=== PATIENT | male | born 1970 | race Caucasian/White ===

== ENCOUNTER 2019-02-19 11:08 | Inpatient (IN) | payer OTHER ==
[2019-02-19] MEDS ORDERED: SODIUM CHLORIDE 0.9% 1,000 ML IV STA (11:20)
--- NOTE | 2019-02-19 11:24 | ED ---
General Adult HPI - General Stated complaint: trauma Time Seen by Provider: 02/19/19 11:20 - History of Present Illness Initial comments: Dictation was produced using [employer] dictation software. please excuse any grammatical, word or spelling errors. Chief Complaint: 48-year-old male presents after fall from approximately 20 feet. History of Present Illness: 48-year-old male. He was in his tree stand when he stepped out. He states he missed the branch fell approximately 20 feet landing on his right back. He states his pain to his right lateral chest. EMS was called patient was brought to the emergency department. Patient was ambulatory after the fall. Patient did have one beer this morning. Patient denies any ALLERGIES. No medical problems. Patient denies any numbness and paresthesias. No loss of consciousness. Denies any head or neck pain. Shortness of breath. The ROS documented in this emergency department record has been reviewed and confirmed by me. Those systems with pertinent positive or negative responses have been documented in the HPI. All other systems are other negative and/or noncontributory. PHYSICAL EXAM: General Impression: Alert and oriented x3, acute distress secondary to pain HEENT: Normocephalic atraumatic, extra-ocular movements intact, pupils equal and reactive to light bilaterally, mucous membranes moist. Cardiovascular: Heart regular rate and rhythm, S1&S2 audible, no murmurs, rubs or gallops Chest: Bilateral breath sounds, crepitus to the right lateral chest Abdomen: Bowel sounds present, abdomen soft, non-tender, non-distended, no organomegaly Musculoskeletal: Pulses present and equal in all extremities, no peripheral edema, no step-offs or crepitus or deformity. The cervical thoracic and lumbar spine, no extremity deformities Motor: no focal deficits noted Neurological: CN II-XII grossly intact, no focal motor or sensory deficits noted Skin: Intact with no visualized rashes Psych: Normal affect and mood ED course: 48-year-old male presents after fall from tree stand. He fell approximately 20 feet. Vital signs arrival are within acceptable limits. Patie nt is crepitus to his right lateral chest. Patient seen and evaluated in emergency resuscitation A. Patient was evaluated via ATLS trauma protocol. Chest exam was equivocal. Left abdomen, cardiac and pelvic when those were unremarkable. There appeared to be significant crepitus obscuring vision of the right abdominal use. Patient did have buckled sign with M-mode of the right lung fortune concerning for pneumothorax. Chest x-ray showed infiltrates in the right lung fortune for pulmonary contusion. Supine x-rays did not reveal large pneumothoraces. No concern for tension pneumothorax at this time. Laboratory evaluation obtained. Leukocytosis of 0.6, hemoglobin 12.8, coag panel unremarkable. Metabolic panel shows like acidosis of 5.0, glucose 125. Patient's creatinine kinase of 683. Serum alcohol of 60. Initial chest x-ray shows no pneumothorax without any mediastinal shift. Pelvis x-rays unremarkable. Computed tomography scan of the head and C-spine is negative. Chest abdomen pelvis CT shows 40% right-sided pneumothorax with small hemothorax noted. There is segmented right-sided rib fractures. No clinical suspicion of flow chest despite segmental rib fractures. No aortic injury. No injuries noted to the abd and pelvis. chest was placed under sterile conditions. 28- Z[place]ian chest tube was placed at the level of the mid axillary line at the level of the nipple. Patient tolerated procedure well. Given ketamine during the procedure. Postprocedure x-ray shows expansion prolonged with adequate placement of chest tube. Discussed patient case with Dr. Zayas request patient be admitted to the intensive care unit. ICU doctors consulted. Anesthesia was consulted. EKG interpretation: Ventricular rate 105, sinus tachycardia,. 132, care is 80, QTc 459. No ME prolongation, no QTC prolongation, no ST or T-wave changes noted. Overall, this EKG is unremarkable - Related Data Home Medications Medication Instructions Recorded Confirmed Butalb/APAP/Caff 50-325-40Mg 1 - 2 tab PO Q6H PRN 02/19/19 02/19/19 [Fioricet 50-325-40] Clonazepam Odt 0.5mg 0.5 mg PO Q8H PRN 02/19/19 02/19/19 Irbesartan/Hydrochlorothiazide 1 tab PO DAILY 02/19/19 02/19/19 [Irbesartan-Hctz 300-12.5 mg Tb] Nortriptyline HCl [Pamelor] 25 - 50 mg PO HS 02/19/19 02/19/19 amLODIPine [Norvasc] 5 mg PO DAILY 02/19/19 02/19/19 Allergies Allergy/AdvReac Type Severity Reaction Status Date / Time No Known Allergies Allergy Verified 02/19/19 12:21 Review of Systems ROS Statement: Those systems with pertinent positive or pertinent negative responses have been documented in the HPI. ROS Other: All systems not noted in ROS Statement are negative. Course Vital Signs 02/19/19 02/19/19 02/19/19 11:08 12:00 12:05 Temperature 97.8 F Pulse Rate 108 H 115 H 100 Respiratory 24 20 20 Rate Blood Pressure 155/90 152/86 172/95 O2 Sat by Pulse 91 L 94 L 94 L Oximetry 02/19/19 02/19/19 12:10 12:15 Temperature Pulse Rate 110 H 105 H Respiratory 24 24 Rate Blood Pressure 178/95 161/91 O2 Sat by Pulse 94 L 95 Oximetry Procedures - Chest Tube Insertion Consent Obtained: written consent Side of Procedure: right Indication: Hemothorax Placed on monitor/pulse oximetry: Yes Site Prep: Povidone-Iodine Local Anesthesia: Lidocaine 2%, Without Epi Insertion Site: 5th Intercostal Space, Midaxillary Scalpel: #15 Open into Pleural Space Using: Mirella Clamp Tube Size (Z[place]ian): 28 Returns: Air, Blood Sutured in Place: Yes Type of Suture: Silk Dressing Applied: 4x4, Tape Attached to Suction: Yes Type of Suction: Pleuravac Repeat X-ray Results: Lung Inflated Patient Tolerated Procedure: well Medical Decision Making - Lab Data Result diagrams: 02/19/19 11:11 02/19/19 11:11 Lab Results 02/19/19 02/19/19 02/19/19 Range/Units 11:11 11:11 11:11 WBC 12.6 H (3.8-10.6) k/uL RBC 3.84 L (4.30-5.90) m/uL Hgb 12.8 L (13.0-17.5) gm/dL Hct 37.5 L (39.0-53.0) % MCV 97.7 (80.0-100.0) fL MCH 33.3 (25.0-35.0) pg MCHC 34.1 (31.0-37.0) g/dL RDW 13.1 (11.5-15.5) % Plt Count 263 (150-450) k/uL Neutrophils % 88 % Lymphocytes % 7 % Monocytes % 4 % Eosinophils % 0 % Basophils % 0 % Neutrophils # 11.0 H (1.3-7.7) k/uL Lymphocytes # 0.8 L (1.0-4.8) k/uL Monocytes # 0.5 (0-1.0) k/uL Eosinophils # 0.1 (0-0.7) k/uL Basophils # 0.0 (0-0.2) k/uL PT (9.0-12.0) sec INR (<1.2) APTT (22.0-30.0) sec Sodium 137 (137-145) mmol/L Potassium 4.2 (3.5-5.1) mmol/L Chloride 101 (98-107) mmol/L Carbon Dioxide 22 (22-30) mmol/L Anion Gap 14 mmol/L BUN 14 (9-20) mg/dL Creatinine 0.82 (0.66-1.25) mg/dL Est GFR (CKD-EPI)AfAm >90 (>60 ml/min/1.73 sqM) Est GFR (CKD-EPI)NonAf >90 (>60 ml/min/1.73 sqM) Glucose 125 H (74-99) mg/dL Plasma Lactic Acid [place] (0.7-2.0) mmol/L Calcium 9.2 (8.4-10.2) mg/dL Total Bilirubin 0.4 (0.2-1.3) mg/dL AST 96 H (17-59) U/L ALT 77 H (21-72) U/L Alkaline Phosphatase 83 (38-126) U/L Total Creatine Kinase 683 H (55-170) U/L CK-MB (CK-2) 7.4 H (0.0-2.4) ng/mL CK-MB (CK-2) Rel Index 1.1 Troponin I <0.012 (0.000-0.034) ng/mL Total Protein 7.5 (6.3-8.2) g/dL Albumin 4.7 (3.5-5.0) g/dL Amylase 48 (30-110) U/L Lipase 119 (23-300) U/L Serum Alcohol 60 mg/dL Blood Type Blood Type Confirm Blood Type Recheck Bld Type Recheck Status Antibody Screen Spec Expiration Date 02/19/19 02/19/19 02/19/19 Range/Units 11:11 11:11 11:11 WBC (3.8-10.6) k/uL RBC (4.30-5.90) m/uL Hgb (13.0-17.5) gm/dL Hct (39.0-53.0) % MCV (80.0-100.0) fL MCH (25.0-35.0) pg MCHC (31.0-37.0) g/dL RDW (11.5-15.5) % Plt Count (150-450) k/uL Neutrophils % % Lymphocytes % % Monocytes % % Eosinophils % % Basophils % % Neutrophils # (1.3-7.7) k/uL Lymphocytes # (1.0-4.8) k/uL Monocytes # (0-1.0) k/uL Eosinophils # (0-0.7) k/uL Basophils # (0-0.2) k/uL PT 10.1 (9.0-12.0) sec INR 0.9 (<1.2) APTT 21.5 L (22.0-30.0) sec Sodium (137-145) mmol/L Potassium (3.5-5.1) mmol/L Chloride (98-107) mmol/L Carbon Dioxide (22-30) mmol/L Anion Gap mmol/L BUN (9-20) mg/dL Creatinine (0.66-1.25) mg/dL Est GFR (CKD-EPI)AfAm (>60 ml/min/1.73 sqM) Est GFR (CKD-EPI)NonAf (>60 ml/min/1.73 sqM) Glucose (74-99) mg/dL Plasma Lactic Acid [place] 5.0 H* (0.7-2.0) mmol/L Calcium (8.4-10.2) mg/dL Total Bilirubin (0.2-1.3) mg/dL AST (17-59) U/L ALT (21-72) U/L Alkaline Phosphatase (38-126) U/L Total Creatine Kinase (55-170) U/L CK-MB (CK-2) (0.0-2.4) ng/mL CK-MB (CK-2) Rel Index Troponin I (0.000-0.034) ng/mL Total Protein (6.3-8.2) g/dL Albumin (3.5-5.0) g/dL Amylase (30-110) U/L Lipase (23-300) U/L Serum Alcohol mg/dL Blood Type O Negative Blood Type Confirm Blood Type Recheck No Previous Record Bld Type Recheck Status CABO Indicated Antibody Screen NEGATIVE Spec Expiration Date 02/22/2019 - 231002/19/19 Range/Units 11:31 WBC (3.8-10.6) k/uL RBC (4.30-5.90) m/uL Hgb (13.0-17.5) gm/dL Hct (39.0-53.0) % MCV (80.0-100.0) fL MCH (25.0-35.0) pg MCHC (31.0-37.0) g/dL RDW (11.5-15.5) % Plt Count (150-450) k/uL Neutrophils % % Lymphocytes % % Monocytes % % Eosinophils % % Basophils % % Neutrophils # (1.3-7.7) k/uL Lymphocytes # (1.0-4.8) k/uL Monocytes # (0-1.0) k/uL Eosinophils # (0-0.7) k/uL Basophils # (0-0.2) k/uL PT (9.0-12.0) sec INR (<1.2) APTT (22.0-30.0) sec Sodium (137-145) mmol/L Potassium (3.5-5.1) mmol/L Chloride (98-107) mmol/L Carbon Dioxide (22-30) mmol/L Anion Gap mmol/L BUN (9-20) mg/dL Creatinine (0.66-1.25) mg/dL Est GFR (CKD-EPI)AfAm (>60 ml/min/1.73 sqM) Est GFR (CKD-EPI)NonAf (>60 ml/min/1.73 sqM) Glucose (74-99) mg/dL Plasma Lactic Acid [place] (0.7-2.0) mmol/L Calcium (8.4-10.2) mg/dL Total Bilirubin (0.2-1.3) mg/dL AST (17-59) U/L ALT (21-72) U/L Alkaline Phosphatase (38-126) U/L Total Creatine Kinase (55-170) U/L CK-MB (CK-2) (0.0-2.4) ng/mL CK-MB (CK-2) Rel Index Troponin I (0.000-0.034) ng/mL Total Protein (6.3-8.2) g/dL Albumin (3.5-5.0) g/dL Amylase (30-110) U/L Lipase (23-300) U/L Serum Alcohol mg/dL Blood Type Blood Type Confirm O Negative Blood Type Recheck Bld Type Recheck Status Antibody Screen Spec Expiration Date Critical Care Time Critical Care Time: Yes (40) Disposition Clinical Impression: Fall, Rib fracture, Hemopneumothorax Disposition: ADMITTED IP TO THIS [facility] Condition: Critical Referrals: None,Stated [REFERRING] - 1-2 days Decision Time: 13:18
[2019-02-19 11:29] LABS: Basophils % (A) 0 %; Eosinophils # (A) 0.1 k/uL (0-0.7); Eosinophils % (A) 0 %; HCT 37.5 % (39.0-53.0); HGB 12.8 gm/dL (13.0-17.5); Lymphocytes # (A) 0.8 k/uL (1.0-4.8); Lymphocytes % (A) 7 %; MCH 33.3 pg (25.0-35.0); MCHC 34.1 g/dL (31.0-37.0); MCV 97.7 fL (80.0-100.0); Mean Platelet Volume 6.2; Monocytes # (A) 0.5 k/uL (0-1.0); Monocytes % (A) 4 %; Neutrophils % (A) 88 %; Platelet Count 263 k/uL (150-450); RBC 3.84 m/uL (4.30-5.90); RDW 13.1 % (11.5-15.5); WBC 12.6 k/uL (3.8-10.6)
[2019-02-19 11:39] LABS: ALT 77 U/L (21-72); AST 96 U/L (17-59); African American GFR (CKD) >90 (>60 ml/min/1.73 sqM); Albumin 4.7 g/dL (3.5-5.0); Alcohol 60 mg/dL; Alkaline Phosphatase 83 U/L (38-126); Amylase 48 U/L (30-110); Anion Gap 14 mmol/L; Blood Urea Nitrogen 14 mg/dL (9-20); Calcium 9.2 mg/dL (8.4-10.2); Carbon Dioxide 22 mmol/L (22-30); Chloride 101 mmol/L (98-107); Glucose 125 mg/dL (74-99); Potassium 4.2 mmol/L (3.5-5.1); Sodium 137 mmol/L (137-145); Total Bilirubin 0.4 mg/dL (0.2-1.3); Total Protein 7.5 g/dL (6.3-8.2)
[2019-02-19 11:49] LABS: INR 0.9 (<1.2); Prothrombin Time 10.1 sec (9.0-12.0)
[2019-02-19] MEDS ORDERED: LIDOCAINE 1%-EPI 1:100,000 20 ML VIAL SQ STA (11:50)
[2019-02-19] MEDS ORDERED: KETAMINE 10 MG/ML 20 ML VIAL IV ONE (11:50)
--- NOTE | 2019-02-19 11:51 | CT ---
EXAMINATION TYPE: CT brain lesly wen DATE OF EXAM: 02/19/2019 COMPARISON: HISTORY: Fell 20' from tree blind CT DLP: 1693.[address] Brain: Unenhanced CT of the brain was performed. The ventricles, basal cisterns and sulci overlying the cerebral convexities demonstrate a normal appe arance. There is no evidence for intracranial hemorrhage or sulcal effacement. No mass effects are seen. If symptoms persist consider MRI. Osseous calvarium is intact. IMPRESSION: No acute intracranial process CT Cervical Spine: Unenhanced CT of the cervical spine was performed with bone and soft tissue window settings submitted . Coronal and sagittal reconstruction is obtained. There is normal alignment and prevertebral soft tissues. I do not see evidence for fracture or sublu xation. No significant degenerative changes are present. The lung apices are clear. Extensive subcu taneous emphysema noted. IMPRESSION: No evidence for acute fracture or subluxation of the cervical spine.
[2019-02-19 11:52] LABS: Partial Thromboplastin Time 21.5 sec (22.0-30.0)
--- NOTE | 2019-02-19 11:57 | XR ---
EXAMINATION TYPE: XR chest 1V portable DATE OF EXAM: 02/19/2019 COMPARISON: NONE HISTORY: 20 foot fall. Chest pain. TECHNIQUE: Single frontal view of the chest is obtained. FINDINGS: Right-sided pneumothorax is visualized with pleural separation of 1.2 cm. Extensive subcut aneous emphysema noted. No left-sided pneumothorax. No significant mediastinal shift at this time. Ca rdiomediastinal silhouette is within normal limits. IMPRESSION: Right-sided pneumothorax without current evidence of mediastinal shift. Findings were co mmunicated with Dr. Hernandez at 11:52am by Dr. Castellanos.
--- NOTE | 2019-02-19 11:58 | XR ---
EXAMINATION TYPE: XR pelvis AP view DATE OF EXAM: 02/19/2019 CLINICAL HISTORY: Pelvic pain after fall approximately 20 feet. TECHNIQUE: A single AP view of the pelvis is obtained. COMPARISON: None. FINDINGS: There is no acute fracture/dislocation evident in the pelvis. The hip and sacroiliac join ts appear symmetric and unremarkable. The overlying soft tissue appears unremarkable. Mild degenerat malcolm changes of the femoral acetabular joints are seen. IMPRESSION: There is no acute fracture or dislocation in the pelvis.
--- NOTE | 2019-02-19 12:03 | CT ---
EXAMINATION TYPE: CT ChestAbdPelvis w con DATE OF EXAM: 02/19/2019 COMPARISON: HISTORY: Fell 20' from tree blind CT DLP: 915.7 mGycm CONTRAST: Contrast enhanced Trauma CT of the Chest, Abdomen and Pelvis is performed with IV Contrast, patient i njected with 100 mL of Isovue 300. Chest: LUNGS: Estimated 40% right-sided pneumothorax identified. Stents of subcutaneous emphysema extending into the neck, along the right chest wall along the right abdominal subcutaneous tissues and into the right groin. There is no evidence for mediastinal shift at this time. The spinal air also noted. Rig ht-sided pleural effusion likely hemothorax on measuring 2.4 cm AP dimension. MEDIASTINUM: Thoracic aorta is of normal caliber without CT evidence to suggest traumatic induced ao rtic injury. No mediastinal fluid or blood. No pericardial fluid or cardia abnormality. HILAR STRUCTURES: No evidence for mass. No hilar adenopathy is appreciated. OTHER: No significant abnormality. OSSEOUS: Mildly comminuted mildly displaced Right-sided rib fractures are noted of the right ribs 4 t hrough 8. There appears to be segmented components of right ribs 5 through 8 (with medial and lateral fracture components) and flail chest is not excluded. CT ABDOMEN AND PELVIS FINDINGS: LIVER/GB: No focal laceration, contusion or subcapsular hemorrhage. No calcified gallstones. No s pace occupying hepatic lesion. Biliary tree is of normal caliber. PANCREAS: No evidence for transection. No inflammation. No distinct mass. SPLEEN: No focal laceration, contusion or subcapsular hemorrhage. ADRENALS: No hemorrhage. No nodule. No thickening. KIDNEYS/BLADDER: No focal laceration, contusion or subcapsular hemorrhage. No hydronephrosis. No n ephrolithiasis. No disctinct renal mass. BOWEL: Bowel is intact. No evidence for pneumoperitoneum. GENITAL ORGANS: No gross abnormality. LYMPH NODES: No greater than 1cm abdominal or pelvic lymph nodes areappreciated. AORTA: No traumatic aortic injury visualized. OSSEOUS STRUCTURES: No displaced fracture seen. OTHER: No evidence for hemoperitoneum. IMPRESSION: 1. Estimated 40% right-sided pneumothorax with small hemothorax noted. Segmented right-sided rib frac tures. Correlate for flail chest. Extensive subcutaneous emphysema. 2. No evidence for thoracic aortic injury. 3. Abdomen and pelvis fail to demonstrate evidence for traumatic injury at this time. Comment: The findings were discussed with the ER physician at time of exam completion.
[2019-02-19 12:06] LABS: Creatine Kinase MB 7.4 ng/mL (0.0-2.4); Troponin I <0.012 ng/mL (0.000-0.034)
[2019-02-19 12:17] LABS: Creatine Kinase 683 U/L (55-170)
[2019-02-19] MEDS ORDERED: MORPHINE SULFATE 4 MG/ML SYRINGE IVP STA (12:37)
[2019-02-19] MEDS ORDERED: fentaNYL (PF) 50 MCG/ML 2 ML AMP IVP PRN (12:46)
--- NOTE | 2019-02-19 12:51 | XR ---
EXAMINATION TYPE: XR chest 1V portable DATE OF EXAM: 02/19/2019 COMPARISON: 02/19/2019 HISTORY: Chest tube placement TECHNIQUE: Single frontal view of the chest is obtained. FINDINGS: Right-sided chest tube is noted to be in place. There appears to be diminution in size of right-sided pneumothorax however the extent of subcutaneous emphysema limits evaluation. Pneumomediastinum noted . Right-sided rib fractures discussed on the CT are poorly visualized. Left lung is clear. No mediast inal shift. IMPRESSION: 1. Right-sided chest tube is noted to be in place. There appears to be diminution in size of right-s ided pneumothorax however the extent of subcutaneous emphysema limits evaluation.
[2019-02-19] MEDS ORDERED: HYDROmorphone 1 MG/ML 1 ML SYRINGE IVP STA (13:07)
[2019-02-19] MEDS ORDERED: ACETAMINOPHEN TAB 325 MG TAB PO PRN (13:11)
[2019-02-19] MEDS ORDERED: ONDANSETRON 4 MG/2 ML VIAL IVP PRN (13:11)
[2019-02-19] MEDS ORDERED: NALOXONE 0.4 MG/ML 1 ML VIAL IV PRN (13:11)
[2019-02-19] MEDS: HYDROmorphone 1 MG/ML 1 ML SYRINGE IVP STA ×2 (13:14→13:48)
[2019-02-19] MEDS: SODIUM CHLORIDE 0.9% 1,000 ML IV SCH ×2 (13:22→21:49)
--- NOTE | 2019-02-19 14:00 | ED ---
Medical Decision Making - Lab Data Result diagrams: 02/19/19 11:11 02/19/19 11:11 Lab Results 02/19/19 02/19/19 02/19/19 Range/Units 11:11 11:11 11:11 WBC 12.6 H (3.8-10.6) k/uL RBC 3.84 L (4.30-5.90) m/uL Hgb 12.8 L (13.0-17.5) gm/dL Hct 37.5 L (39.0-53.0) % MCV 97.7 (80.0-100.0) fL MCH 33.3 (25.0-35.0) pg MCHC 34.1 (31.0-37.0) g/dL RDW 13.1 (11.5-15.5) % Plt Count 263 (150-450) k/uL Neutrophils % 88 % Lymphocytes % 7 % Monocytes % 4 % Eosinophils % 0 % Basophils % 0 % Neutrophils # 11.0 H (1.3-7.7) k/uL Lymphocytes # 0.8 L (1.0-4.8) k/uL Monocytes # 0.5 (0-1.0) k/uL Eosinophils # 0.1 (0-0.7) k/uL Basophils # 0.0 (0-0.2) k/uL PT (9.0-12.0) sec INR (<1.2) APTT (22.0-30.0) sec Sodium 137 (137-145) mmol/L Potassium 4.2 (3.5-5.1) mmol/L Chloride 101 (98-107) mmol/L Carbon Dioxide 22 (22-30) mmol/L Anion Gap 14 mmol/L BUN 14 (9-20) mg/dL Creatinine 0.82 (0.66-1.25) mg/dL Est GFR (CKD-EPI)AfAm >90 (>60 ml/min/1.73 sqM) Est GFR (CKD-EPI)NonAf >90 (>60 ml/min/1.73 sqM) Glucose 125 H (74-99) mg/dL Plasma Lactic Acid [place] (0.7-2.0) mmol/L Calcium 9.2 (8.4-10.2) mg/dL Total Bilirubin 0.4 (0.2-1.3) mg/dL AST 96 H (17-59) U/L ALT 77 H (21-72) U/L Alkaline Phosphatase 83 (38-126) U/L Total Creatine Kinase 683 H (55-170) U/L CK-MB (CK-2) 7.4 H (0.0-2.4) ng/mL CK-MB (CK-2) Rel Index 1.1 Troponin I <0.012 (0.000-0.034) ng/mL Total Protein 7.5 (6.3-8.2) g/dL Albumin 4.7 (3.5-5.0) g/dL Amylase 48 (30-110) U/L Lipase 119 (23-300) U/L Serum Alcohol 60 mg/dL Blood Type Blood Type Confirm Blood Type Recheck Bld Type Recheck Status Antibody Screen Spec Expiration Date 02/19/19 02/19/19 02/19/19 Range/Units 11:11 11:11 11:11 WBC (3.8-10.6) k/uL RBC (4.30-5.90) m/uL Hgb (13.0-17.5) gm/dL Hct (39.0-53.0) % MCV (80.0-100.0) fL MCH (25.0-35.0) pg MCHC (31.0-37.0) g/dL RDW (11.5-15.5) % Plt Count (150-450) k/uL Neutrophils % % Lymphocytes % % Monocytes % % Eosinophils % % Basophils % % Neutrophils # (1.3-7.7) k/uL Lymphocytes # (1.0-4.8) k/uL Monocytes # (0-1.0) k/uL Eosinophils # (0-0.7) k/uL Basophils # (0-0.2) k/uL PT 10.1 (9.0-12.0) sec INR 0.9 (<1.2) APTT 21.5 L (22.0-30.0) sec Sodium (137-145) mmol/L Potassium (3.5-5.1) mmol/L Chloride (98-107) mmol/L Carbon Dioxide (22-30) mmol/L Anion Gap mmol/L BUN (9-20) mg/dL Creatinine (0.66-1.25) mg/dL Est GFR (CKD-EPI)AfAm (>60 ml/min/1.73 sqM) Est GFR (CKD-EPI)NonAf (>60 ml/min/1.73 sqM) Glucose (74-99) mg/dL Plasma Lactic Acid [place] 5.0 H* (0.7-2.0) mmol/L Calcium (8.4-10.2) mg/dL Total Bilirubin (0.2-1.3) mg/dL AST (17-59) U/L ALT (21-72) U/L Alkaline Phosphatase (38-126) U/L Total Creatine Kinase (55-170) U/L CK-MB (CK-2) (0.0-2.4) ng/mL CK-MB (CK-2) Rel Index Troponin I (0.000-0.034) ng/mL Total Protein (6.3-8.2) g/dL Albumin (3.5-5.0) g/dL Amylase (30-110) U/L Lipase (23-300) U/L Serum Alcohol mg/dL Blood Type O Negative Blood Type Confirm Blood Type Recheck No Previous Record Bld Type Recheck Status CABO Indicated Antibody Screen NEGATIVE Spec Expiration Date 02/22/2019231002/19/19 Range/Units 11:31 WBC (3.8-10.6) k/uL RBC (4.30-5.90) m/uL Hgb (13.0-17.5) gm/dL Hct (39.0-53.0) % MCV (80.0-100.0) fL MCH (25.0-35.0) pg MCHC (31.0-37.0) g/dL RDW (11.5-15.5) % Plt Count (150-450) k/uL Neutrophils % % Lymphocytes % % Monocytes % % Eosinophils % % Basophils % % Neutrophils # (1.3-7.7) k/uL Lymphocytes # (1.0-4.8) k/uL Monocytes # (0-1.0) k/uL Eosinophils # (0-0.7) k/uL Basophils # (0-0.2) k/uL PT (9.0-12.0) sec INR (<1.2) APTT (22.0-30.0) sec Sodium (137-145) mmol/L Potassium (3.5-5.1) mmol/L Chloride (98-107) mmol/L Carbon Dioxide (22-30) mmol/L Anion Gap mmol/L BUN (9-20) mg/dL Creatinine (0.66-1.25) mg/dL Est GFR (CKD-EPI)AfAm (>60 ml/min/1.73 sqM) Est GFR (CKD-EPI)NonAf (>60 ml/min/1.73 sqM) Glucose (74-99) mg/dL Plasma Lactic Acid [place] (0.7-2.0) mmol/L Calcium (8.4-10.2) mg/dL Total Bilirubin (0.2-1.3) mg/dL AST (17-59) U/L ALT (21-72) U/L Alkaline Phosphatase (38-126) U/L Total Creatine Kinase (55-170) U/L CK-MB (CK-2) (0.0-2.4) ng/mL CK-MB (CK-2) Rel Index Troponin I (0.000-0.034) ng/mL Total Protein (6.3-8.2) g/dL Albumin (3.5-5.0) g/dL Amylase (30-110) U/L Lipase (23-300) U/L Serum Alcohol mg/dL Blood Type Blood Type Confirm O Negative Blood Type Recheck Bld Type Recheck Status Antibody Screen Spec Expiration Date Disposition Clinical Impression: Fall, Rib fracture, Hemopneumothorax Disposition: ADMITTED IP TO THIS HOSP Condition: Critical Procedures - [place] Protocol (Time Out) Procedure Performed:: CHEST TUBE INSERTION Performing Provider: Paulino Hernandez Nurse: Malika Murray Respiratory Therapist: Tate Hernandez Patient Identification (2 identifiers required): Chart, Verbal, Arm Band, Name, Birthdate, Medical Record Number Patient/Legal Plumbing Service Technician has Confirmed: Identity, Site, Procedure, Consent Site: RIGHT CHEST Site Marked: Not Applicable Site Verified With Patient/Guardian: Yes Final Confirmation: Procedure, Site, Patient Position, Radiographs, Confirmed w/Provider - FAST Exam Fluid in Morison's pouch: No (obscured by soft tissue air) Fluid in [place]en[place]nal [place]unction: No Fluid around bladder, Transverse view: No Fluid around bladder, Sagittal view: No Limited Echocardiogram view: subxiphoid Fluid in Pericardial Sac: No Gross Wall Motion Abnormality: Yes Study normal for this patient: Yes Images saved for further review: Yes
--- NOTE | 2019-02-19 14:01 | P.CNPUL ---
History of Present Illness Consult date: 02/19/19 Requesting physician: Paulino Hernandez Reason for consult: other Chief complaint: Trauma, hemothorax, broken ribs History of present illness: This is a 48-year-old white male patient who presented to the hospital after falling from a tree stand, patient fell approximately 20 feet. After his fall he was able to walk to the road, but then he realized he needed to go to the hospital related to severe pain in his right lateral chest. Patient has history of hypertension, migraine headaches, anxiety/depression, no ALLERGIES. Denied any loss of consciousness, he states a branch under him had broke causing him to fall 20 feet onto his right back. Denied any head or neck pain, no shortness of breath. In the ER CT of chest abdomen and pelvis showed the 40% right-sided hemopneumothorax with segmented right-sided rib fractures, with the possibility of flail chest. There was evidence of extensive subcutaneous emphysema. No evidence for thoracic aortic injury, etiology of abdomen and pelvis failed to demonstrate evidence of traumatic injury at this time. CT brain was negative, cervical spine CT showed no evidence of fracture or subluxation, showed extensive subcutaneous emphysema. Patient had the right-sided chest tube inserted by Dr. Hernandez in the emergency department, there has been 120 mL of 5 sanguinous output, there is an occasional air leak noted with deep inspiration. Lab work showed a white blood cell count of 12.6, hemoglobin of 12.8, platelet count of 263, in remission profile is within normal limits, electrolytes and renal profile are unremarkable, asthma lactic acid is 5.0, troponin is negative, serum alcohol is 60, and patient does admit to having one beer this morning. Is currently on 4 L of oxygen with a pulse ox of 95%, slightly tachycardic, and hypertensive, he is in moderate to severe amount of pain from the right-sided rib fractures, he has received IV Dilaudid, ketamine and fentanyl, anesthesia consultation is pending. Awaiting a bed in the ICU, and we're consulted for ICU management Review of Systems All systems: negative Constitutional: Denies chills, Denies fever Eyes: denies blurred vision, denies pain Ears, nose, mouth and throat: Denies headache, Denies sore throat Cardiovascular: Denies chest pain, Denies shortness of breath Respiratory: Reports dyspnea, Denies cough Gastrointestinal: Denies abdominal pain, Denies diarrhea, Denies nausea, Denies vomiting Musculoskeletal: Denies myalgias Integumentary: Denies pruritus, Denies rash Neurological: Denies numbness, Denies weakness Psychiatric: Denies anxiety, Denies depression Endocrine: Denies fatigue, Denies weight change Past Medical History Past Medical History: Hypertension History of Any Multi-Drug Resistant Organisms: None Reported Past Surgical History: No Surgical Hx Reported Past Psychological History: No Psychological Hx Reported Smoking Status: Current every day smoker Past Alcohol Use History: Daily Past Drug Use History: None Reported - Past Family History Father Family Medical History: No Reported History Medications and Allergies Home Medications Medication Instructions Recorded Confirmed Type Butalb/APAP/Caff 50-325-40Mg 1 - 2 tab PO Q6H PRN 02/19/19 02/19/19 History [Fioricet 50-325-40] Clonazepam Odt 0.5mg 0.5 mg PO Q8H PRN 02/19/19 02/19/19 History Irbesartan/Hydrochlorothiazide 1 tab PO DAILY 02/19/19 02/19/19 History [Irbesartan-Hctz 300-12.5 mg Tb] Nortriptyline HCl [Pamelor] 25 - 50 mg PO HS 02/19/19 02/19/19 History amLODIPine [Norvasc] 5 mg PO DAILY 02/19/19 02/19/19 History Allergies Allergy/AdvReac Type Severity Reaction Status Date / Time No Known Allergies Allergy Verified 02/19/19 12:21 Physical Exam Vitals: Vital Signs Temp Pulse Resp BP Pulse Ox 02/19/19 12:15 105 H 24 161/91 95 02/19/19 12:10 110 H 24 178/95 94 L 02/19/19 12:05 100 20 172/95 94 L 02/19/19 12:00 115 H 20 152/86 94 L 02/19/19 11:08 97.8 F 108 H 24 155/90 91 L Intake and Output 02/18/19 02/19/19 02/19/19 22:59 06:59 14:59 Other: Weight 86.183 kg GENERAL EXAM: Alert, pleasant, 48-year-old white male, in moderate to severe amount of distress from a right-sided chest discomfort from multiple broken ribs, comfortable in no apparent distress. HEAD: Normocephalic/atraumatic. EYES: Normal reaction of pupils, equal size. Conjunctiva pink, sclera white. NOSE: Clear with pink turbinates. THROAT: No erythema or exudates. NECK: No masses, no JVD, no thyroid enlargement, no adenopathy. CHEST: No chest wall deformity. Symmetrical expansion. Right anterior chest tube in place with the 100 mL of sanguinous output in the Pleur-evac, with occasional air leak with deep inspiration, and there is evidence of extensive subcu emphysema involving the anterior chest extending to his lower neck area, and down to his abdomen LUNGS: Equal air entry with no crackles, wheeze, rhonchi or dullness. CVS: Regular rate and rhythm, normal S1 and S2, no gallops, no murmurs, no rubs ABDOMEN: Soft, nontender. No hepatosplenomegaly, normal bowel sounds, no guarding or rigidity. EXTREMITIES: No clubbing, no edema, no cyanosis, 2+ pulses and upper and lower extremities. MUSCULOSKELETAL: Muscle strength and tone normal. SPINE: No scoliosis or deformity SKIN: No rashes CENTRAL NERVOUS SYSTEM: Alert and oriented -3. No focal deficits, tone is normal in all 4 extremities. PSYCHIATRIC: Alert and oriented -3. Appropriate affect. Intact judgment and insight. Results - Laboratory Findings CBC and BMP: 02/19/19 11:11 02/19/19 11:11 PT/INR, D-dimer PT 10.1 sec (9.0-12.0) 02/19/19 11:11 INR 0.9 (<1.2) 02/19/19 11:11 Abnormal lab findings: Abnormal Labs 02/19/19 02/19/19 02/19/19 11:11 11:11 11:11 WBC 12.6 H RBC 3.84 L Hgb 12.8 L Hct 37.5 L Neutrophils # 11.0 H Lymphocytes # 0.8 L APTT Glucose 125 H Plasma Lactic Acid Urbano AST 96 H ALT 77 H Total Creatine Kinase 683 H CK-MB (CK-2) 7.4 H 02/19/19 02/19/19 11:11 11:11 WBC RBC Hgb Hct Neutrophils # Lymphocytes # APTT 21.5 L Glucose Plasma Lactic Acid Urbano 5.0 H* AST ALT Total Creatine Kinase CK-MB (CK-2) - Diagnostic Findings Chest x-ray: report reviewed, image reviewed CT scan - chest: report reviewed, image reviewed Assessment and Plan Plan: Assessment: #1. Acute hypoxic respiratory failure related to hemopneumothorax, right chest tube inserted #2. Fall from a tree stand, multiple rib fracture on the right ribs 4 through 8, mildly comminuted and segmental components of right ribs 5 through 8, with the possibility of flail chest #3. Extensive subcutaneous emphysema extending into the neck along the right chest wall down to the abdomen and into the right groin #4. Severe pain related to the above #5. Blood loss anemia related to hemothorax #6. Elevated plasma lactic acid not related to sepsis #7. Daily alcohol use #8. Current smoker #9. Hypertension #10. Anxiety/depression Plan: Maintain pain control, anesthesia service consultation was requested, encourage deep breathing and coughing, CT chest abdomen pelvis and chest x-rays have been reviewed. We'll request cardiothoracic surgery consultation for hemothorax and chest tube management. Awaiting a bed in the ICU. Nicotine patch will be ordered. GI and DVT prophylaxis. We'll continue close hemodynamic monitoring. I performed a history & physical examination of the patient and discussed their management with my nurse practitioner, Ruth Fitch. I reviewed the nurse practitioner's note and agree with the documented findings and plan of care. Lung sounds are positive for diminished breath sounds at the bases. The findings and the impression was discussed with the patient. I attest to the documentation by the nurse practitioner. Time with Patient: Greater than 30
[2019-02-19 14:23] LABS: Glucose,Whole Blood 123 mg/dL (75-99)
[2019-02-19] MEDS ORDERED: KETOROLAC 30 MG/ML 1 ML VIAL IVP ONE (14:27)
[2019-02-19 15:09] VITALS: BMI 26.4
[2019-02-19] MEDS: HYDROmorphone 1 MG/ML 1 ML SYRINGE IVP PRN ×3 (15:11→20:35)
--- NOTE | 2019-02-19 15:23 | P.GSCN ---
History of Present Illness Consult date: 02/19/19 Reason for Consult: Right hemothorax, fractured ribs status post fall from a deer stand. Requesting physician: Nara Quintanilla History of present illness: This is a 48-year-old gentleman who is followed by Dr. Galileo Garcia on an outpatient basis. He has a past medical history significant for hypertension, is a current every day smoker, migraine headaches and anxiety/depression. The patient presented to the emergency department here at [facility] via EMS after falling approximately 20 feet from his chu stand. The patient reports that he he was getting down from his deer stand when a branch broke and he fell around 20 feet and landed on his back. He did not lose consciousness, bowel or bladder function. After his fall he was able to stand on his own and walk approximately 100 feet from his deer stand to the road where he was able to call 911 for assistance. He denies any headache, shortness of breath, but does report significant pain to his right chest. In the emergency department a computed tomography scan of his head/cervical spine was completed which showed no evidence of fracture or subluxation. A computed tomography scan of his abdomen/pelvis and chest was completed which demonstrated a 40% right sided hemopneumothorax with segmented right-sided rib fractures, with the possi bility of flail chest and extensive subcutaneous emphysema. A right-sided thoracostomy tube was inserted in the emergency department by . The chest tube is to low continuous wall suction -20 cm H2O. No air leak is present and is draining serosanguineous drainage with 200 mL in the Pleur-evac. Oxygen saturations are 96% on 4 L nasal cannula and his heart rate is showing sinus tachycardia heart rate 111 BPM. His initial laboratory results showed a WBC count of 12.6, hemoglobin 12.8, hematocrit 37.5, platelets 263, PT 10.1, INR 0.9 BUN 14, creatinine 0.82, glucose 125, venous plasma lactic acid 5.0, AST 96, ALT 77, total creatinine kinase 683, CK-MB of 7.4 and a serum alcohol level of 60 mg/dL. Due to the patient's fall, and findings of a right sided hemopneumothorax and fractured ribs a consult was placed to Dr. Shekhar Hart from cardiothoracic surgery for further evaluation and treatment recommendations. Review of Systems A 14 point review of systems was completed and was negative except as mentioned in the HPI. Past Medical History Past Medical History: Hypertension History of Any Multi-Drug Resistant Organisms: None Reported Additional Past Surgical History / Comment(s): Vasectomy, left shoulder scope. Past Anesthesia/Blood Transfusion Reactions: No Reported Reaction Past Psychological History: Anxiety, Depression Smoking Status: Current every day smoker Past Alcohol Use History: Occasional Past Drug Use History: None Reported - Past Family History Father Family Medical History: AICD/Pacemaker, Coronary Artery Disease (CAD), Myocardial Infarction ([place]) Mother Family Medical History: No Reported History Medications and Allergies Home Medications Medication Instructions Recorded Confirmed Type Butalb/APAP/Caff 50-325-40Mg 1 - 2 tab PO Q6H PRN 02/19/19 02/19/19 History [Fioricet 50-325-40] Clonazepam Odt 0.5mg 0.5 mg PO Q8H PRN 02/19/19 02/19/19 History Irbesartan/Hydrochlorothiazide 1 tab PO DAILY 02/19/19 02/19/19 History [Irbesartan-Hctz 300-12.5 mg Tb] Nortriptyline HCl [Pamelor] 25 - 50 mg PO HS 02/19/19 02/19/19 History amLODIPine [Norvasc] 5 mg PO DAILY 02/19/19 02/19/19 History Allergies Allergy/AdvReac Type Severity Reaction Status Date / Time No Known Allergies Allergy Verified 02/19/19 12:21 Surgical - Exam Vital Signs Temp Pulse Resp BP Pulse Ox 97.8 F 108 H 24 155/90 91 L 02/19/19 11:08 02/19/19 11:08 02/19/19 11:08 02/19/19 11:08 02/19/19 11:08 - General well developed, well nourished, no distress, moderate pain (Pain to his right chest), obese - Eyes PERRL, normal ocular movement - ENT normal pinna, normal nares, normal mucosa, no hearing loss, no congestion - Neck Neck is supple, no lymphadenopathy. no masses, no bruits, trachea midline, no venous distension - Respiratory Lung sounds are essentially clear throughout, diminished to his right lower lobe. No wheezes, crackles or rhonchi. Respirations are symmetrical and nonlabored. Oxygen saturation is 96% on 4 L nasal cannula. Right pleural chest tube in place to low continuous wall suction at -20 cm H2O. No air leak is present. Draining serosanguineous drainage with 200 mL of drainage in the Pleur-evac system. Subcu emphysema present to his neck, right chest, arm and abdomen. - Cardiovascular Regular rhythm with a tachycardic rate. S1 and S2 present, negative for S3, gallop or murmur. No edema present. - Abdomen Abdomen is soft, nontender and nondistended. No organomegaly appreciated. Active bowel sounds present all 4 abdominal quadrants. No guarding or rigidity. - Genitourinary Deferred - Rectum Deferred - Integumentary no rash, no growths, no abnormal pigmentation - Neurologic Cranial nerves II through XII intact. normal coordination, normal sensation - Psychiatric oriented to time, oriented to person, oriented to place, speech is normal, memory intact Results - Labs 02/19/19 11:11 02/19/19 11:11 Abnormal Lab Results - Last 24 Hours (Table) 02/19/19 02/19/19 02/19/19 Range/Units 11:11 11:11 11:11 WBC 12.6 H (3.8-10.6) k/uL RBC 3.84 L (4.30-5.90) m/uL Hgb 12.8 L (13.0-17.5) gm/dL Hct 37.5 L (39.0-53.0) % Neutrophils # 11.0 H (1.3-7.7) k/uL Lymphocytes # 0.8 L (1.0-4.8) k/uL APTT (22.0-30.0) sec Glucose 125 H (74-99) mg/dL POC Glucose (mg/dL) (75-99) mg/dL Plasma Lactic Acid Urbano (0.7-2.0) mmol/L AST 96 H (17-59) U/L ALT 77 H (21-72) U/L Total Creatine Kinase 683 H (55-170) U/L CK-MB (CK-2) 7.4 H (0.0-2.4) ng/mL 02/19/19 02/19/19 02/19/19 Range/Units 11:11 11:11 14:11 WBC (3.8-10.6) k/uL RBC (4.30-5.90) m/uL Hgb (13.0-17.5) gm/dL Hct (39.0-53.0) % Neutrophils # (1.3-7.7) k/uL Lymphocytes # (1.0-4.8) k/uL APTT 21.5 L (22.0-30.0) sec Glucose (74-99) mg/dL POC Glucose (mg/dL) 123 H (75-99) mg/dL Plasma Lactic Acid Urbano 5.0 H* (0.7-2.0) mmol/L AST (17-59) U/L ALT (21-72) U/L Total Creatine Kinase (55-170) U/L CK-MB (CK-2) (0.0-2.4) ng/mL Diabetes panel 02/19/19 Range/Units 11:11 Sodium 137 (137-145) mmol/L Potassium 4.2 (3.5-5.1) mmol/L Chloride 101 (98-107) mmol/L Carbon Dioxide 22 (22-30) mmol/L BUN 14 (9-20) mg/dL Creatinine 0.82 (0.66-1.25) mg/dL Glucose 125 H (74-99) mg/dL Calcium 9.2 (8.4-10.2) mg/dL AST 96 H (17-59) U/L ALT 77 H (21-72) U/L Alkaline Phosphatase 83 (38-126) U/L Total Protein 7.5 (6.3-8.2) g/dL Albumin 4.7 (3.5-5.0) g/dL Calcium panel 02/19/19 Range/Units 11:11 Calcium 9.2 (8.4-10.2) mg/dL Albumin 4.7 (3.5-5.0) g/dL Pituitary panel 02/19/19 Range/Units 11:11 Sodium 137 (137-145) mmol/L Potassium 4.2 (3.5-5.1) mmol/L Chloride 101 (98-107) mmol/L Carbon Dioxide 22 (22-30) mmol/L BUN 14 (9-20) mg/dL Creatinine 0.82 (0.66-1.25) mg/dL Glucose 125 H (74-99) mg/dL Calcium 9.2 (8.4-10.2) mg/dL Adrenal panel 02/19/19 Range/Units 11:11 Sodium 137 (137-145) mmol/L Potassium 4.2 (3.5-5.1) mmol/L Chloride 101 (98-107) mmol/L Carbon Dioxide 22 (22-30) mmol/L BUN 14 (9-20) mg/dL Creatinine 0.82 (0.66-1.25) mg/dL Glucose 125 H (74-99) mg/dL Calcium 9.2 (8.4-10.2) mg/dL Total Bilirubin 0.4 (0.2-1.3) mg/dL AST 96 H (17-59) U/L ALT 77 H (21-72) U/L Alkaline Phosphatase 83 (38-126) U/L Total Protein 7.5 (6.3-8.2) g/dL Albumin 4.7 (3.5-5.0) g/dL - Imaging Chest x-ray: report reviewed, image reviewed CT scan - chest: report reviewed, image reviewed Assessment and Plan Assessment: 1. Right hemopneumothorax, status post right chest tube placement 2. Extensive subcutaneous emphysema extending from his neck along his right chest wall into his abdomen and right groin 3. Fall from a tree stand with multiple rib fractures on the right, possibility of flail chest 4. Severe right-sided chest pain, status post fall from a deer stand 5. Hypertension 6. Tobacco abuse, current every day smoker 7. History of anxiety/depression Plan: Patient was seen and examined at the bedside in the intensive care unit. His chart and diagnostics were reviewed. His case was discussed in detail with Dr. Don Delgado from cardiothoracic surgery. No surgical intervention is warranted at this time. Recommend pain management per anesthesia. We will start the patient on Toradol to add with pain control. Keep right pleural chest tube to low continuous wall suction at this time. Encourage use of incentive spirometry every hour while awake. Spoke with the patient about the importance of smoking cessation. Increase activity as tolerated. GI and DVT prophylaxis. Pulmonary recommendations per Dr. Quintanilla, medical management and other comorbid disease management per primary care service. Thank you Dr. Quintanilla for this consult and we will look forward to working with you in the care of this patient. Time with Patient: Greater than 30
[2019-02-19] MEDS: KETOROLAC 30 MG/ML 1 ML VIAL IVP SCH ×2 (18:54→23:41)
[2019-02-19] MEDS ORDERED: LORazepam 2 MG/ML INJ IV PRN ×3 (19:04)
[2019-02-19] MEDS ORDERED: THIAMINE 100 MG/ML 2 ML VIAL IM STA (19:04)
[2019-02-19] MEDS: FAMOTIDINE 20 MG TAB PO SCH (21:47)
[2019-02-19] MEDS: THIAMINE 100 MG TAB PO SCH (21:47)
--- NOTE | 2019-02-19 22:31 | P.PAINCN ---
History of Present Illness - Reason for Consult Consult date: 02/19/19 - Chief Complaint Rib Fractures, Chest Pain - History of Present Illness This is a 48-year-old gentleman with a past medical history significant for hypertension, is a current every day smoker, migraine headaches and anxiety/depression. The patient presented to the emergency department here at [facility] via EMS after falling approximately 20 feet. The patient reports that he was getting down from his deer stand when a branch broke and he fell around 20 feet and landed on his back. He did not lose consciousness, bowel or bladder function. After his fall he was able to stand on his own and walk approximately 100 feet from his deer stand to the road where he was able to call 911 for assistance. Pain management was consulted to evaluate Acute pain and placement of thoracic epidural. Pain while in ICU was 7-8/10 in severity. Describes it as a throbbing aching pain with deep breathing. He denies any significant pain at rest. He was given a few doses of Dilaudid and Toradol for coming to the ICU. States that it did not provide him with any significant relief. There is tenderness to touch along the chest tube site. He denies any radicular symptoms, weakness in his lower extremities, bowel or bladder incontinence, or saddle anesthesia. Review of Systems Constitutional: Reports as per HPI Ears, nose, mouth and throat: Reports as per HPI, Denies headache, Denies sore throat Cardiovascular: Reports chest pain Respiratory: Reports as per HPI Musculoskeletal: Reports fractures, Reports limitation of motion Neurological: Reports as per HPI Psychiatric: Reports as per HPI Endocrine: Reports as per HPI Hematologic/Lymphatic: Denies easy bleeding, Denies easy bruising, Denies lymphadenopathy, Denies lymphedema, Denies thrombophilia Past Medical History Past Medical History: Hypertension History of Any Multi-Drug Resistant Organisms: None Reported Past Surgical History: No Surgical Hx Reported Additional Past Surgical History / Comment(s): Vasectomy, left shoulder scope. Past Anesthesia/Blood Transfusion Reactions: No Reported Reaction Past Psychological History: Anxiety, Depression Smoking Status: Current every day smoker Past Alcohol Use History: Heavy Additional Past Alcohol Use History / Comment(s): 6 pack of beer daily Past Drug Use History: None Reported - Past Family History Father Family Medical History: AICD/Pacemaker, Coronary Artery Disease (CAD), Myocardial Infarction ([place]) Mother Family Medical History: No Reported History Medications and Allergies Home Medications Medication Instructions Recorded Confirmed Type Butalb/APAP/Caff 50-325-40Mg 1 - 2 tab PO Q6H PRN 02/19/19 02/19/19 History [Fioricet 50-325-40] Clonazepam Odt 0.5mg 0.5 mg PO Q8H PRN 02/19/19 02/19/19 History Irbesartan/Hydrochlorothiazide 1 tab PO DAILY 02/19/19 02/19/19 History [Irbesartan-Hctz 300-12.5 mg Tb] Nortriptyline HCl [Pamelor] 25 - 50 mg PO HS 02/19/19 02/19/19 History amLODIPine [Norvasc] 5 mg PO DAILY 02/19/19 02/19/19 History Allergies Allergy/AdvReac Type Severity Reaction Status Date / Time No Known Allergies Allergy Verified 02/19/19 12:21 Physical Exam Vitals: Vital Signs Temp Pulse Resp BP Pulse Ox 02/19/19 17:00 99 16 135/78 95 02/19/19 16:49 20 02/19/19 16:45 107 H 13 135/78 96 02/19/19 16:30 109 H 20 136/77 96 02/19/19 16:15 109 H 17 159/88 96 02/19/19 16:00 107 H 14 137/82 96 02/19/19 15:45 111 H 17 142/88 96 02/19/19 15:37 96 02/19/19 15:30 109 H 9 L 134/76 97 02/19/19 15:15 111 H 17 165/101 97 02/19/19 15:00 110 H 14 163/98 97 02/19/19 14:45 113 H 21 170/95 97 02/19/19 14:30 113 H 16 153/106 94 L 02/19/19 14:15 120 H 22 178/98 95 02/19/19 14:10 99.5 F 120 H 12 178/98 96 02/19/19 12:15 105 H 24 161/91 95 02/19/19 12:10 110 H 24 178/95 94 L 02/19/19 12:05 100 20 172/95 94 L 02/19/19 12:00 115 H 20 152/86 94 L 02/19/19 11:08 97.8 F 108 H 24 155/90 91 L Intake and Output 02/19/19 02/19/19 02/19/19 06:59 14:59 22:59 Intake Total 130 390 Output Total 300 510 Balance -170 -120 Intake: IV 130 390 0.9 NACL 130 390 Output: Chest Tube Drainage 210 Right Lateral Chest 210 Urine 300 300 Other: Weight 94.6 kg - Constitutional General appearance: average body habitus, cooperative - EENT Eyes: PERRLA ENT: hearing grossly normal - Neck Neck: normal ROM - Cardiovascular Rhythm: regular - Integumentary Integumentary: normal, normal turgor - Musculoskeletal 5 out of 5 strength upper and lower extremities. Pain to palpation along thoracic cavity. - Psychiatric Psychiatric: A&O x's 3, appropriate affect, intact judgment & insight Results CBC & Chem 7: 02/19/19 11:11 02/19/19 11:11 Labs: Abnormal Lab Results - Last 24 Hours (Table) 02/19/19 02/19/19 02/19/19 Range/Units 11:11 11:11 11:11 WBC 12.6 H (3.8-10.6) k/uL RBC 3.84 L (4.30-5.90) m/uL Hgb 12.8 L (13.0-17.5) gm/dL Hct 37.5 L (39.0-53.0) % Neutrophils # 11.0 H (1.3-7.7) k/uL Lymphocytes # 0.8 L (1.0-4.8) k/uL APTT (22.0-30.0) sec Glucose 125 H (74-99) mg/dL POC Glucose (mg/dL) (75-99) mg/dL Plasma Lactic Acid Urbano (0.7-2.0) mmol/L AST 96 H (17-59) U/L ALT 77 H (21-72) U/L Total Creatine Kinase 683 H (55-170) U/L CK-MB (CK-2) 7.4 H (0.0-2.4) ng/mL 02/19/19 02/19/19 02/19/19 Range/Units 11:11 11:11 14:11 WBC (3.8-10.6) k/uL RBC (4.30-5.90) m/uL Hgb (13.0-17.5) gm/dL Hct (39.0-53.0) % Neutrophils # (1.3-7.7) k/uL Lymphocytes # (1.0-4.8) k/uL APTT 21.5 L (22.0-30.0) sec Glucose (74-99) mg/dL POC Glucose (mg/dL) 123 H (75-99) mg/dL Plasma Lactic Acid Urbano 5.0 H* (0.7-2.0) mmol/L AST (17-59) U/L ALT (21-72) U/L Total Creatine Kinase (55-170) U/L CK-MB (CK-2) (0.0-2.4) ng/mL Assessment and Plan Plan: Assessment: 1. Multiple rib fractures 2. Myofascial pain. Plan: 1. I spoke with the patient after my evaluation. He currently does not want to undergo epidural placement. He was placed on dilaudid 1mg Q3H PRN. It is working well. He denies any shortness of breath or difficulty breathing. He is resting comfortably in bed. I offered him the option of an epidural if medication is not as effective during his hospital stay. 2. Thank you for the consult and for allowing us to evaluate this patient. We'll follow up tomorrow to make sure that IV medications are providing adequate analgesia. PQRS Measure Charge Sheet PQRS Narrative: Smoking Status Current every day smoker Do You Want the Pneumonia No Vaccine AT THIS TIME? Blood Pressure 135/78 Pain Intensity [Chest] 4 Pain Intensity 8 Pain Scale Used Numeric (1 - 10) Scale Used Numeric (1 - 10) Home Medications: Ambulatory Orders Butalb/APAP/Caff 50-325-40Mg [Fioricet 50-325-40] 1 - 2 tab PO Q6H PRN 02/19/19 Clonazepam Odt 0.5mg 0.5 mg PO Q8H PRN 02/19/19 Irbesartan/Hydrochlorothiazide [Irbesartan-Hctz 300-12.5 mg Tb] 1 tab PO DAILY 02/19/19 Nortriptyline HCl [Pamelor] 25 - 50 mg PO HS 02/19/19 amLODIPine [Norvasc] 5 mg PO DAILY 02/19/19
[2019-02-19] MEDS: HEPARIN SODIUM,PORCINE 5,000 UNIT/ML 1 ML VIAL SQ SCH (23:42)
[2019-02-20] MEDS: HYDROmorphone 1 MG/ML 1 ML SYRINGE IVP PRN ×8 (00:26→22:02)
[2019-02-20 04:51] LABS: Basophils % (A) 0 %; Eosinophils # (A) 0.1 k/uL (0-0.7); Eosinophils % (A) 2 %; HCT 33.6 % (39.0-53.0); HGB 11.3 gm/dL (13.0-17.5); Lymphocytes # (A) 0.9 k/uL (1.0-4.8); Lymphocytes % (A) 14 %; MCH 33.2 pg (25.0-35.0); MCHC 33.6 g/dL (31.0-37.0); MCV 98.9 fL (80.0-100.0); Mean Platelet Volume 6.5; Monocytes # (A) 0.4 k/uL (0-1.0); Monocytes % (A) 7 %; Neutrophils % (A) 77 %; Platelet Count 174 k/uL (150-450); RDW 13.1 % (11.5-15.5); WBC 6.5 k/uL (3.8-10.6)
[2019-02-20 05:22] LABS: African American GFR (CKD) >90 (>60 ml/min/1.73 sqM); Anion Gap 4 mmol/L; Blood Urea Nitrogen 19 mg/dL (9-20); Calcium 8.3 mg/dL (8.4-10.2); Carbon Dioxide 26 mmol/L (22-30); Chloride 103 mmol/L (98-107); Glucose 102 mg/dL (74-99); Potassium 4.5 mmol/L (3.5-5.1); Sodium 133 mmol/L (137-145)
[2019-02-20] MEDS: KETOROLAC 30 MG/ML 1 ML VIAL IVP SCH ×3 (06:31→17:19)
[2019-02-20] MEDS: SODIUM CHLORIDE 0.9% 1,000 ML IV SCH ×3 (06:31→20:23)
--- NOTE | 2019-02-20 06:37 | XR ---
EXAMINATION TYPE: XR chest 1V DATE OF EXAM: 02/20/2019 HISTORY: sob. REFERENCE: Previous study dated 02/19/2019. FINDINGS: There is a right pleural drain in place. There is extensive subcutaneous emphysema on the r ight and to a lesser extent on the left. Right-sided pneumothorax is not clearly evident. The lungs a ppear clear. The heart is mildly enlarged. IMPRESSION: I CAN NO LONGER CLEARLY IDENTIFIED RIGHT-SIDED PNEUMOTHORAX.
--- NOTE | 2019-02-20 09:01 | P.PN ---
Subjective Progress Note Date: 02/20/19 Principal diagnosis: Right hemopneumothorax, fractured ribs status post fall from a deer stand. Past medical history significant for hypertension, GERD every day smoker, daily EtOH use, migraine headaches and anxiety/depression The patient is currently laying in bed in the intensive care unit. He is in no acute distress. He is complaining of right-sided chest pain, reports his pain is 6 out of 10 on the pain scale and hurts when he takes a deep breath or coughs. Denies any complaints of shortness of breath and his oxygen saturations are currently 96% on 4 L nasal cannula. He is demonstrating good use on his incentive spirometry and achieving 1250 mL. Right pleural chest tube remains in place to low continuous wall suction -20 cm, H2O with intermittent air leak pr esent. Continues to drain serosanguineous drainage with 750 mL output since the chest tube was inserted and 400 mL output in the last 8 hours. Subcu emphysema is present to his face, neck, chest and back, right arm and right abdomen. The patient is also complaining of sounding nasally when speaking. Objective - Vital Signs Vital signs: Vital Signs Temp 98.2 F 02/20/19 04:00 Pulse 95 02/20/19 07:00 Resp 16 02/20/19 07:00 BP 146/91 02/20/19 07:00 Pulse Ox 94 L 02/20/19 07:00 Intake & Output 02/19/19 02/20/19 02/20/19 18:59 06:59 18:59 Intake Total 650 1910 130 Output Total 810 325 400 Balance -160 1585 -270 Weight 94.6 kg 92.9 kg Intake: IV 650 1430 130 0.9 NACL 650 1430 130 Oral 480 Output: Chest Tube Drainage 210 400 Right Lateral Chest 210 400 Urine 600 325 Other: # Voids 0 0 - Constitutional General appearance: Present: cooperative, no acute distress, obese - Respiratory Details: Lung sounds essentially clear to his bilateral upper lobes, diminished to his right lower lobe. No crackles, wheezes or rhonchi present. Oxygen saturations 96% on 4 L nasal cannula. Achieving 1250 mL on his incentive spirometry. Right pleural chest tube in place to low continuous wall suction -20 cm H2O. Intermittent air leak is present. Draining serosanguineous drainage with 750 mL output in a 24-hour period and 400 mL output in the last 8 hours. - Gastrointestinal Gastrointestinal Comment(s): Abdomen soft, nontender nondistended. Active bowel sounds present in all 4 abdominal quadrants. No guarding or rigidity. No organomegaly appreciated. - Genitourinary Genitourinary Comment(s): Voiding clear yellow urine. - Integumentary Integumentary Comment(s): Skin is warm and dry. No clubbing or cyanosis is present. No rash or abnormal pigmentation is present. Subcutaneous emphysema present to his face, neck, chest, back, right arm and right lower abdomen. - Neurologic Neurologic: Present: CNII-XII intact - Musculoskeletal Musculoskeletal: Present: gait normal, generalized weakness, strength equal bilaterally - Psychiatric Psychiatric: Present: A&O x's 3, appropriate affect, intact judgment & insight - Allied health notes Allied health notes reviewed: nursing - Labs CBC & Chem 7: 02/20/19 04:36 02/20/19 04:36 Labs: Abnormal Lab Results - Last 24 Hours (Table) 02/19/19 02/19/19 02/19/19 Range/Units 11:11 11:11 11:11 WBC 12.6 H (3.8-10.6) k/uL RBC 3.84 L (4.30-5.90) m/uL Hgb 12.8 L (13.0-17.5) gm/dL Hct 37.5 L (39.0-53.0) % Neutrophils # 11.0 H (1.3-7.7) k/uL Lymphocytes # 0.8 L (1.0-4.8) k/uL APTT (22.0-30.0) sec Sodium (137-145) mmol/L Glucose 125 H (74-99) mg/dL POC Glucose (mg/dL) (75-99) mg/dL Plasma Lactic Acid Urbano (0.7-2.0) mmol/L Calcium (8.4-10.2) mg/dL AST 96 H (17-59) U/L ALT 77 H (21-72) U/L Total Creatine Kinase 683 H (55-170) U/L CK-MB (CK-2) 7.4 H (0.0-2.4) ng/mL 02/19/19 02/19/19 02/19/19 Range/Units 11:11 11:11 14:11 WBC (3.8-10.6) k/uL RBC (4.30-5.90) m/uL Hgb (13.0-17.5) gm/dL Hct (39.0-53.0) % Neutrophils # (1.3-7.7) k/uL Lymphocytes # (1.0-4.8) k/uL APTT 21.5 L (22.0-30.0) sec Sodium (137-145) mmol/L Glucose (74-99) mg/dL POC Glucose (mg/dL) 123 H (75-99) mg/dL Plasma Lactic Acid [place]rb[place] 5.0 H* (0.7-2.0) mmol/L Calcium (8.4-10.2) mg/dL AST (17-59) U/L ALT (21-72) U/L Total Creatine Kinase (55-170) U/L CK-MB (CK-2) (0.0-2.4) ng/mL 02/20/19 02/20/19 02/20/19 Range/Units 04:36 04:36 04:36 WBC (3.8-10.6) k/uL RBC 3.40 L (4.30-5.90) m/uL Hgb 11.3 L (13.0-17.5) gm/dL Hct 33.6 L (39.0-53.0) % Neutrophils # (1.3-7.7) k/uL Lymphocytes # 0.9 L (1.0-4.8) k/uL APTT (22.0-30.0) sec Sodium 133 L (137-145) mmol/L Glucose 102 H (74-99) mg/dL POC Glucose (mg/dL) (75-99) mg/dL Plasma Lactic Acid [place] 0.6 L (0.7-2.0) mmol/L Calcium 8.3 L (8.4-10.2) mg/dL AST (17-59) U/L ALT (21-72) U/L Total Creatine Kinase (55-170) U/L CK-MB (CK-2) (0.0-2.4) ng/mL - Imaging and Cardiology Chest x-ray: report reviewed, image reviewed Assessment and Plan Assessment: 1. Right hemopneumothorax, status post right chest tube placement 2. Extensive subcutaneous emphysema extending from his neck along his right chest wall into his abdomen and right groin 3. Fall from a tree stand with multiple rib fractures on the right, possibility of flail chest 4. Severe right-sided chest pain, status post fall from a deer stand 5. Hypertension 6. Tobacco abuse, current every day smoker 7. History of anxiety/depression Plan: 1. Keep right pleural chest tube in place to low continuous wall suction -20 cm H2O. 2. Pain control per anesthesia management. 3. Continue to monitor her daily chest x-rays. 4. Wean oxygen as tolerated. Pulmonary management per Dr. Quintanilla's recommendations. 5. Encourage use of his incentive spirometry every hour while awake. 6. GI and DVT prophylaxis. 7. More recommendations to follow based on patient's clinical course. Time with Patient: Greater than 30
[2019-02-20] MEDS: FAMOTIDINE 20 MG TAB PO SCH (09:24)
[2019-02-20] MEDS: HEPARIN SODIUM,PORCINE 5,000 UNIT/ML 1 ML VIAL SQ SCH ×2 (09:26→16:22)
[2019-02-20] MEDS: PANTOPRAZOLE 40 MG TABLET PO SCH (09:26)
[2019-02-20] MEDS: THIAMINE 100 MG TAB PO SCH ×2 (09:26→17:34)
[2019-02-20] MEDS ORDERED: amLODIPine 5 MG TAB PO SCH (10:15)
--- NOTE | 2019-02-20 10:24 | P.GSHP ---
History of Present Illness H&P Date: 02/19/19 Chief Complaint: Chest wall pain Is a 48-year-old male who fell approximately 20 feet. Patient was climbing out of history stand when a branch broke. He fell and had immediate right-sided chest pain. Patient workup in the emergency room is found have multiple right rib fractures, pneumothorax and simultaneous emphysema. The patient received a right chest tube in the ER. He appears to be clinically stable. Past Medical History Past Medical History: Hypertension History of Any Multi-Drug Resistant Organisms: None Reported Past Surgical History: No Surgical Hx Reported Additional Past Surgical History / Comment(s): Vasectomy, left shoulder scope. Past Anesthesia/Blood Transfusion Reactions: No Reported Reaction Past Psychological History: Anxiety, Depression Smoking Status: Current every day smoker Past Alcohol Use History: Heavy Additional Past Alcohol Use History / Comment(s): 6 pack of beer daily Past Drug Use History: None Reported - Past Family History Father Family Medical History: AICD/Pacemaker, Coronary Artery Disease (CAD), My ocardial Infarction (AK) Mother Family Medical History: No Reported History Medications and Allergies Home Medications Medication Instructions Recorded Confirmed Type Butalb/APAP/Caff 50-325-40Mg 1 - 2 tab PO Q6H PRN 02/19/19 02/19/19 History [Fioricet 50-325-40] Clonazepam Odt 0.5mg 0.5 mg PO Q8H PRN 02/19/19 02/19/19 History Irbesartan/Hydrochlorothiazide 1 tab PO DAILY 02/19/19 02/19/19 History [Irbesartan-Hctz 300-12.5 mg Tb] Nortriptyline HCl [Pamelor] 25 - 50 mg PO HS 02/19/19 02/19/19 History amLODIPine [Norvasc] 5 mg PO DAILY 02/19/19 02/19/19 History Allergies Allergy/AdvReac Type Severity Reaction Status Date / Time No Known Allergies Allergy Verified 02/19/19 12:21 Surgical - Exam Vital Signs Temp Pulse Resp BP Pulse Ox 97.8 F 108 H 24 155/90 91 L 02/19/19 11:08 02/19/19 11:08 02/19/19 11:08 02/19/19 11:08 02/19/19 11:08 - General well developed, well nourished, moderate distress - Eyes PERRL - ENT normal pinna - Neck no masses - Respiratory Splinting with deep inspiration right chest normal expansion - Cardiovascular Rhythm: regular - Abdomen Abdomen: soft, non tender Results - Labs 02/20/19 04:36 02/20/19 04:36 Abnormal Lab Results - Last 24 Hours (Table) 02/19/19 02/19/19 02/19/19 Range/Units 11:11 11:11 11:11 WBC 12.6 H (3.8-10.6) k/uL RBC 3.84 L (4.30-5.90) m/uL Hgb 12.8 L (13.0-17.5) gm/dL Hct 37.5 L (39.0-53.0) % Neutrophils # 11.0 H (1.3-7.7) k/uL Lymphocytes # 0.8 L (1.0-4.8) k/uL APTT (22.0-30.0) sec Sodium (137-145) mmol/L Glucose 125 H (74-99) mg/dL POC Glucose (mg/dL) (75-99) mg/dL Plasma Lactic Acid Rubano (0.7-2.0) mmol/L Calcium (8.4-10.2) mg/dL AST 96 H (17-59) U/L ALT 77 H (21-72) U/L Total Creatine Kinase 683 H (55-170) U/L CK-MB (CK-2) 7.4 H (0.0-2.4) ng/mL 02/19/19 02/19/19 02/19/19 Range/Units 11:11 11:11 14:11 WBC (3.8-10.6) k/uL RBC (4.30-5.90) m/uL Hgb (13.0-17.5) gm/dL Hct (39.0-53.0) % Neutrophils # (1.3-7.7) k/uL Lymphocytes # (1.0-4.8) k/uL APTT 21.5 L (22.0-30.0) sec Sodium (137-145) mmol/L Glucose (74-99) mg/dL POC Glucose (mg/dL) 123 H (75-99) mg/dL Plasma Lactic Acid [place]rb[place] 5.0 H* (0.7-2.0) mmol/L Calcium (8.4-10.2) mg/dL AST (17-59) U/L ALT (21-72) U/L Total Creatine Kinase (55-170) U/L CK-MB (CK-2) (0.0-2.4) ng/mL 02/20/19 02/20/19 02/20/19 Range/Units 04:36 04:36 04:36 WBC (3.8-10.6) k/uL RBC 3.40 L (4.30-5.90) m/uL Hgb 11.3 L (13.0-17.5) gm/dL Hct 33.6 L (39.0-53.0) % Neutrophils # (1.3-7.7) k/uL Lymphocytes # 0.9 L (1.0-4.8) k/uL APTT (22.0-30.0) sec Sodium 133 L (137-145) mmol/L Glucose 102 H (74-99) mg/dL POC Glucose (mg/dL) (75-99) mg/dL Plasma Lactic Acid [place]rb[place] 0.6 L (0.7-2.0) mmol/L Calcium 8.3 L (8.4-10.2) mg/dL AST (17-59) U/L ALT (21-72) U/L Total Creatine Kinase (55-170) U/L CK-MB (CK-2) (0.0-2.4) ng/mL Diabetes panel 02/19/19 02/20/19 Range/Units 11:11 04:36 Sodium 137 133 L (137-145) mmol/L Potassium 4.2 4.5 (3.5-5.1) mmol/L Chloride 101 103 (98-107) mmol/L Carbon Dioxide 22 26 (22-30) mmol/L BUN 14 19 (9-20) mg/dL Creatinine 0.82 0.86 (0.66-1.25) mg/dL Glucose 125 H 102 H (74-99) mg/dL Calcium 9.2 8.3 L (8.4-10.2) mg/dL AST 96 H (17-59) U/L ALT 77 H (21-72) U/L Alkaline Phosphatase 83 (38-126) U/L Total Protein 7.5 (6.3-8.2) g/dL Albumin 4.7 (3.5-5.0) g/dL Calcium panel 02/19/19 02/20/19 Range/Units 11:11 04:36 Calcium 9.2 8.3 L (8.4-10.2) mg/dL Albumin 4.7 (3.5-5.0) g/dL Pituitary panel 02/19/19 02/20/19 Range/Units 11:11 04:36 Sodium 137 133 L (137-145) mmol/L Potassium 4.2 4.5 (3.5-5.1) mmol/L Chloride 101 103 (98-107) mmol/L Carbon Dioxide 22 26 (22-30) mmol/L BUN 14 19 (9-20) mg/dL Creatinine 0.82 0.86 (0.66-1.25) mg/dL Glucose 125 H 102 H (74-99) mg/dL Calcium 9.2 8.3 L (8.4-10.2) mg/dL Adrenal panel 02/19/19 02/20/19 Range/Units 11:11 04:36 Sodium 137 133 L (137-145) mmol/L Potassium 4.2 4.5 (3.5-5.1) mmol/L Chloride 101 103 (98-107) mmol/L Carbon Dioxide 22 26 (22-30) mmol/L BUN 14 19 (9-20) mg/dL Creatinine 0.82 0.86 (0.66-1.25) mg/dL Glucose 125 H 102 H (74-99) mg/dL Calcium 9.2 8.3 L (8.4-10.2) mg/dL Total Bilirubin 0.4 (0.2-1.3) mg/dL AST 96 H (17-59) U/L ALT 77 H (21-72) U/L Alkaline Phosphatase 83 (38-126) U/L Total Protein 7.5 (6.3-8.2) g/dL Albumin 4.7 (3.5-5.0) g/dL - Imaging CT scan - chest: report reviewed (Multiple right rib fractures with ribs for 3 to fractured. There is possibility of a flail segment.) Assessment and Plan Assessment: Fall from tree stand. Patient has at least 4 rib fractures with possible flail chest. The patient has significant subcutaneous emphysema. Chest tube has in place. Patient will be observed in the ICU. Cardiac stress surgery, anesthesia and pulmonology has been consulted he'll be observed closely.
[2019-02-20] MEDS: DOCUSATE 100 MG CAP PO SCH (10:36)
[2019-02-20] MEDS: LOSARTAN 25 MG TAB PO SCH (10:36)
--- NOTE | 2019-02-20 10:55 | P.PN ---
Progress Note - Text Progress Note Date: 02/20/19 The patient is resting comfortably in the chair. His pneumothorax appears to be resolved with his chest tube decompression. However he has significant subcutaneous emphysema. This appeared to be increased from yesterday. On exam his vital signs are stable. His abdomen is soft. Patient still has significant right-sided chest wall pain. Status post multiple right rib fractures with possible flail chest, pulmonary contusion. Patient's subcutaneous emphysema will be followed closely.
--- NOTE | 2019-02-20 11:39 | P.PN ---
Subjective Progress Note Date: 02/20/19 Principal diagnosis: Chest wall trauma with multiple rib fractures, hydropneumothorax and subcutaneous emphysema. This is a 48-year-old white male patient who presented to the hospital after falling from a tree stand, patient fell approximately 20 feet. After his fall he was able to walk to the road, but then he realized he needed to go to the hospital related to severe pain in his right lateral chest. Patient has history of hypertension, migraine headaches, anxiety/depression, no ALLERGIES. Denied any loss of consciousness, he states a branch under him had broke causing him to fall 20 feet onto his right back. Denied any head or neck pain, no shortness of breath. In the ER CT of chest abdomen and pelvis showed the 40% right-sided hemopneumothorax with segmented right-sided rib fractures, with the possibility of flail chest. There was evidence of extensive subcutaneous emphysema. No evidence for thoracic aortic injury, etiology of abdomen and pelvis failed to demonstrate evidence of traumatic injury at this time. CT brain was negative, cervical spine CT showed no evidence of fracture or subluxation, showed extensive subcutaneous emphysema. Patient had the right-sided chest tube inserted by Dr. Hernandez in the emergency department, there has been 120 mL of 5 sanguinous output, there is an occasional air leak noted with deep inspiration. Lab work showed a white blood cell count of 12.6, hemoglobin of 12.8, platelet count of 263, in remission profile is within normal limits, electrolytes and renal profile are unremarkable, asthma lactic acid is 5.0, troponin is negative, serum alcohol is 60, and patient does admit to having one beer this morning. Is currently on 4 L of oxygen with a pulse ox of 95%, slightly tachycardic, and hypertensive, he is in moderate to severe amount of pain from the right-sided rib fractures, he has received IV Dilaudid, ketamine and fentanyl, anesthesia consultation is pending. Awaiting a bed in the ICU, and we're consulted for ICU management Patient was reevaluated today on 02/20/2019 remains in the ICU, continues to have right-sided chest tube in place. Right lung is fully expanded, continues to have significant subcutaneous emphysema. Patient is on 4 L nasal cannula and O2 saturations are 96%. Doing well with incentive spirometry. Intermittent air leak noted. Continues to drain serosanguineous material. He had 750 ML output since admission. 400 in the last 8 hours. Pain is on a scale of 6/10. Improving with Dilaudid. CBC is relatively normal hemoglobin is 11.3 electrodes are normal renal profile is normal Objective - Vital Signs Vital signs: Vital Signs Temp 98.3 F 02/20/19 08:00 Pulse 99 02/20/19 09:01 Resp 16 02/20/19 09:01 BP 161/93 02/20/19 09:01 Pulse Ox 97 02/20/19 08:00 Intake & Output 02/19/19 02/20/19 02/20/19 18:59 06:59 18:59 Intake Total 650 1910 390 Output Total 810 325 520 Balance -160 1585 -130 Weight 94.6 kg 92.9 kg Intake: IV 650 1430 390 0.9 NACL 650 1430 390 Oral 480 Output: Chest Tube Drainage 210 400 Right Lateral Chest 210 400 Urine 600 325 120 Other: Voiding Method Urinal # Voids 0 0 - Exam GENERAL EXAM: Alert, pleasant, 48-year-old white male, on 4 L nasal cannula, in no distress. Pain significantly improved since yesterday. HEENT: PERRLA, EOMI, no icterus, subcutaneous emphysema palpable in the anterior chest wall and at the base of his neck and in the supraclavicular area. CHEST: No chest wall deformity. Symmetrical expansion. Good breath sound bilaterally. Right-sided chest tube is noted. LUNGS: Good breath sounds, symmetrical chest expansion. No crackles or rhonchi or wheezes.. CVS: Regular rate and rhythm, normal S1 and S2, no gallops, no murmurs, no rubs ABDOMEN: Soft nontender no megaly no rebound no guarding. EXTREMITIES: No clubbing, no edema, no cyanosis, good pulses bilaterally. MUSCULOSKELETAL: Muscle strength and tone normal. SPINE: No scoliosis or deformity SKIN: No rashes CENTRAL NERVOUS SYSTEM: Alert and oriented -3. No focal deficits, PSYCHIATRIC: Normal mood, normal affect, and normal mental status examination. - Labs CBC & Chem 7: 02/20/19 04:36 02/20/19 04:36 Labs: Abnormal Lab Results - Last 24 Hours (Table) 02/19/19 02/19/19 02/19/19 Range/Units 11:11 11:11 11:11 RBC (4.30-5.90) m/uL Hgb (13.0-17.5) gm/dL Hct (39.0-53.0) % Lymphocytes # (1.0-4.8) k/uL APTT 21.5 L (22.0-30.0) sec Sodium (137-145) mmol/L Glucose 125 H (74-99) mg/dL POC Glucose (mg/dL) (75-99) mg/dL Plasma Lactic Acid Rubano (0.7-2.0) mmol/L Calcium (8.4-10.2) mg/dL AST 96 H (17-59) U/L ALT 77 H (21-72) U/L Total Creatine Kinase 683 H (55-170) U/L CK-MB (CK-2) 7.4 H (0.0-2.4) ng/mL 02/19/19 02/19/19 02/20/19 Range/Units 11:11 14:11 04:36 RBC 3.40 L (4.30-5.90) m/uL Hgb 11.3 L (13.0-17.5) gm/dL Hct 33.6 L (39.0-53.0) % Lymphocytes # 0.9 L (1.0-4.8) k/uL APTT (22.0-30.0) sec Sodium (137-145) mmol/L Glucose (74-99) mg/dL POC Glucose (mg/dL) 123 H (75-99) mg/dL Plasma Lactic Acid [place]rb[place] 5.0 H* (0.7-2.0) mmol/L Calcium (8.4-10.2) mg/dL AST (17-59) U/L ALT (21-72) U/L Total Creatine Kinase (55-170) U/L CK-MB (CK-2) (0.0-2.4) ng/mL 02/20/19 02/20/19 Range/Units 04:36 04:36 RBC (4.30-5.90) m/uL Hgb (13.0-17.5) gm/dL Hct (39.0-53.0) % Lymphocytes # (1.0-4.8) k/uL APTT (22.0-30.0) sec Sodium 133 L (137-145) mmol/L Glucose 102 H (74-99) mg/dL POC Glucose (mg/dL) (75-99) mg/dL Plasma Lactic Acid [place] 0.6 L (0.7-2.0) mmol/L Calcium 8.3 L (8.4-10.2) mg/dL AST (17-59) U/L ALT (21-72) U/L Total Creatine Kinase (55-170) U/L CK-MB (CK-2) (0.0-2.4) ng/mL Assessment and Plan Assessment: #1. Acute hypoxic respiratory failure related to hemopneumothorax, status post right sided tube thoracostomy. #2. Multiple right-sided rib fractures secondary to fall. #3. Extensive subcutaneous emphysema , not getting any worse compared to yesterday. #4. Severe pain related to the above #5. Blood loss anemia related to hemothorax #6. Nonspecific lactic acid elevation, definitely no sepsis and no septic shock, and his lactic acid is back to normal. Exact reason for lactic acid elevation is not clear. #7. Daily alcohol use #8. Current smoker #9. Hypertension #10. Anxiety/depression Recommendation: Continue present supportive care measures. We'll continue to monitor over the next 24 hours, his right-sided chest tube will remain in place, continue pain control with Dilaudid. He was seen by anesthesia, did not feel a need for epidural placement. Continue incentive spirometry. We will likely transfer out of the ICU in the next 24 hours. We'll continue to follow. Time with Patient: Less than 30
[2019-02-20] MEDS: METHOCARBAMOL 750 MG TAB PO PRN ×2 (12:04→17:34)
[2019-02-21] MEDS: HEPARIN SODIUM,PORCINE 5,000 UNIT/ML 1 ML VIAL SQ SCH ×5 (00:08→22:53)
[2019-02-21] MEDS: KETOROLAC 30 MG/ML 1 ML VIAL IVP SCH ×4 (00:09→18:29)
[2019-02-21] MEDS: HYDROmorphone 1 MG/ML 1 ML SYRINGE IVP PRN ×5 (01:14→22:53)
[2019-02-21] MEDS: SODIUM CHLORIDE 0.9% 1,000 ML IV SCH ×2 (03:31→12:36)
[2019-02-21 04:34] LABS: Basophils % (A) 1 %; Eosinophils # (A) 0.1 k/uL (0-0.7); Eosinophils % (A) 3 %; HGB 10.4 gm/dL (13.0-17.5); Lymphocytes # (A) 0.7 k/uL (1.0-4.8); Lymphocytes % (A) 15 %; MCH 33.9 pg (25.0-35.0); MCHC 33.7 g/dL (31.0-37.0); MCV 100.6 fL (80.0-100.0); Mean Platelet Volume 7.2; Monocytes # (A) 0.2 k/uL (0-1.0); Monocytes % (A) 5 %; Neutrophils # (A) 3.5 k/uL (1.3-7.7); Neutrophils % (A) 75 %; Platelet Count 167 k/uL (150-450); RBC 3.08 m/uL (4.30-5.90); RDW 12.9 % (11.5-15.5); WBC 4.6 k/uL (3.8-10.6)
[2019-02-21 04:58] LABS: African American GFR (CKD) >90 (>60 ml/min/1.73 sqM); Anion Gap 6 mmol/L; Blood Urea Nitrogen 16 mg/dL (9-20); Calcium 8.3 mg/dL (8.4-10.2); Carbon Dioxide 24 mmol/L (22-30); Chloride 104 mmol/L (98-107); Glucose 99 mg/dL (74-99); Potassium 4.3 mmol/L (3.5-5.1); Sodium 134 mmol/L (137-145)
--- NOTE | 2019-02-21 06:01 | XR ---
EXAMINATION TYPE: XR chest 1V portable DATE OF EXAM: 02/21/2019 HISTORY: chest tube in place. REFERENCE: Previous study dated 02/20/2019 right pleural drain remains in place. There is improving s ubcutaneous emphysema. A definite pneumothorax is not seen. There is bibasilar airspace disease. This may have worsened slightly. Heart is enlarged.. FINDINGS: 1. I no longer see definite pneumothorax. 2. Worsening bibasilar airspace disease. IMPRESSION:
[2019-02-21] MEDS: THIAMINE 100 MG TAB PO SCH ×2 (07:01→18:30)
[2019-02-21] MEDS: PANTOPRAZOLE 40 MG TABLET PO SCH (07:01)
[2019-02-21] MEDS: DOCUSATE 100 MG CAP PO SCH (09:15)
[2019-02-21] MEDS: ALPRAZolam 0.5 MG TAB PO SCH (09:16)
[2019-02-21] MEDS: amLODIPine 5 MG TAB PO SCH ×2 (09:16→21:11)
--- NOTE | 2019-02-21 09:22 | P.PN ---
Subjective Progress Note Date: 02/21/19 Patient seen and examined today. He is improved overall. He is on Dilaudid 1 mg every 3 hours as needed. Start him on Robaxin 750 mg 4 times a day. VAS today is between a 4-6 out of 10 in severity. He's ambulating with mild discomfort. Denies any nausea, vomiting, pruritus. Objective - Vital Signs Vital signs: Vital Signs Temp 98.0 F 02/21/19 08:00 Pulse 92 02/21/19 09:00 Resp 19 02/21/19 09:00 BP 164/85 02/21/19 09:00 Pulse Ox 93 L 02/21/19 09:00 Intake & Output 02/20/19 02/21/19 02/21/19 18:59 06:59 18:59 Intake Total 1560 1560 310 Output Total 1070 610 255 Balance 490 950 55 Weight 92.9 kg Intake: IV 1560 130 50 0.9 NACL 1560 130 50 Intake, IV Titration 1430 260 Amount Sodium Chloride 0.9% 1, 1430 260 000 ml @ 50 mls/hr IV . Q20H [facility] Rx#:[id number] Output: Chest Tube Drainage 400 10 Right Lateral Chest 400 10 Urine 670 600 255 Other: Voiding Method Urinal Urinal # Voids 0 0 1 - Constitutional General appearance: Present: average body habitus - EENT Eyes: Present: PERRLA - Integumentary Integumentary: Present: normal, normal turgor - Musculoskeletal Musculoskeletal Comment(s): 5/5 strength upper and lower extremities. Tenderness to palpation along the thoracic wall, tenderness to palpation along chest tube insertion site on the right. Musculoskeletal: Present: gait normal - Psychiatric Psychiatric: Present: A&O x's 3, appropriate affect, intact judgment & insight - Labs CBC & Chem 7: 02/21/19 04:24 02/21/19 04:21 Labs: Abnormal Lab Results - Last 24 Hours (Table) 02/21/19 02/21/19 Range/Units 04:21 04:24 RBC 3.08 L (4.30-5.90) m/uL Hgb 10.4 L (13.0-17.5) gm/dL Hct 31.0 L (39.0-53.0) % MCV 100.6 H (80.0-100.0) fL Lymphocytes # 0.7 L (1.0-4.8) k/uL Sodium 134 L (137-145) mmol/L Calcium 8.3 L (8.4-10.2) mg/dL Assessment and Plan Assessment: Assessment: 1. Multiple rib fractures 2. Acute traumatic pain 3. Myofascial pain Plan: 1. Can begin weaning patient off Dilaudid 1 mg every 3 hours and transitioning to Percocet 10 mg/325 mg every 3 hours when necessary. Continue with Robaxin 750 mg 4 times a day when necessary. 2. Patient can follow up at the [facility] pain clinic if needed. Recommend patient be discharged with Percocet 10 mg/325 mg every 6 hours with a 14 day prescription for 60 tablets. A prescription for Robaxin 750 mg 3 times a day. Thank you for the consult please contact anesthesia for any questions.
--- NOTE | 2019-02-21 09:37 | P.PN ---
Subjective Progress Note Date: 02/21/19 Principal diagnosis: Right hemopneumothorax, fractured ribs status post fall from a deer stand. Past medical history significant for hypertension, GERD every day smoker, daily EtOH use, migraine headaches and anxiety/depression The patient is currently ambulating up to the bathroom. He remains in the intensive care unit and is in no acute distress. Continues to complain of right-sided chest pain, denies any complaints of shortness of breath. Currently rates his pain 6 out of 10 on the pain scale. Right pleural chest tube remains in place to low continuous wall suction -20 cm H2O. No air leak is present. Oxygen saturation is 97% on 2 L nasal cannula. He is achieving 1500 mL on his incentive spirometry. Subcu emphysema remains present to his right chest, back and abdomen. The patient feels like his subcu emphysema has improved today. He remains complaining of his 40s sounding nasally. Objective - Vital Signs Vital signs: Vital Signs Temp 98.0 F 02/21/19 08:00 Pulse 92 02/21/19 09:00 Resp 19 02/21/19 09:00 BP 164/85 02/21/19 09:00 Pulse Ox 93 L 02/21/19 09:00 Intake & Output 02/20/19 02/21/19 02/21/19 18:59 06:59 18:59 Intake Total 1560 1560 310 Output Total 1070 610 255 Balance 490 950 55 Weight 92.9 kg Intake: IV 1560 130 50 0.9 NACL 1560 130 50 Intake, IV Titration 1430 260 Amount Sodium Chloride 0.9% 1, 1430 260 000 ml @ 50 mls/hr IV . Q20H [facility] Rx#:[id number] Output: Chest Tube Drainage 400 10 Right Lateral Chest 400 10 Urine 670 600 255 Other: Voiding Method Urinal Urinal # Voids 0 0 1 - Constitutional General appearance: Present: cooperative, no acute distress, obese - Respiratory Details: Lung sounds essentially clear to his bilateral upper lobes, diminished to his right lower lobe. No crackles, wheezes or rhonchi present. Oxygen saturations 97% on 2 L nasal cannula. Achieving 1500 mL on his incentive spirometry. Right pleural chest tube in place to low continuous wall suction -20 cm H2O. No air leak. Draining serosanguineous drainage with 70 mL output in a 24-hour period. - Cardiovascular Details: Regular rhythm and rate. S1 and S2 present, negative for S3, gallop or murmur. Bedside telemetry showing sinus tachycardia heart rate 101. No edema present. Knee-high sequential compression devices in place with bilateral lobe, Carlos Eduardo. - Gastrointestinal Gastrointestinal Comment(s): Abdomen is soft, nontender nondistended. Active bowel sounds present all 4 abd ominal quadrants. No guarding or rigidity. No organomegaly appreciated. - Genitourinary Genitourinary Comment(s): Voiding clear yellow urine. - Integumentary Integumentary Comment(s): Skin is warm and dry. No clubbing or cyanosis is present. No rash or abnormal pigmentation is present. - Neurologic Neurologic: Present: CNII-XII intact - Musculoskeletal Musculoskeletal: Present: gait normal, generalized weakness, strength equal bilaterally - Psychiatric Psychiatric: Present: A&O x's 3, appropriate affect, intact judgment & insight - Allied health notes Allied health notes reviewed: nursing - Labs CBC & Chem 7: 02/21/19 04:24 02/21/19 04:21 Labs: Abnormal Lab Results - Last 24 Hours (Table) 02/21/19 02/21/19 Range/Units 04:21 04:24 RBC 3.08 L (4.30-5.90) m/uL Hgb 10.4 L (13.0-17.5) gm/dL Hct 31.0 L (39.0-53.0) % MCV 100.6 H (80.0-100.0) fL Lymphocytes # 0.7 L (1.0-4.8) k/uL Sodium 134 L (137-145) mmol/L Calcium 8.3 L (8.4-10.2) mg/dL - Imaging and Cardiology Chest x-ray: report reviewed, image reviewed Assessment and Plan Assessment: 1. Right hemopneumothorax, status post right chest tube placement 2. Extensive subcutaneous emphysema extending from his neck along his right chest wall into his abdomen and right groin 3. Fall from a tree stand with multiple rib fractures on the right, possibility of flail chest 4. Severe right-sided chest pain, status post fall from a deer stand 5. Hypertension 6. Tobacco abuse, current every day smoker 7. History of anxiety/depression 8. History of daily EtOH use. Plan: 1. Keep right pleural chest tube in place, remove wall suction and place to water seal. 2. Pain control per anesthesia management. 3. Continue to monitor her daily chest x-rays. 4. Wean oxygen as tolerated. Pulmonary management per Dr. Quintanilla's recommendations. 5. Encourage use of his incentive spirometry every hour while awake. 6. GI and DVT prophylaxis. 7. Increase activity as tolerated. Out of bed for all meals. 8. More recommendations to follow based on patient's clinical course. Time with Patient: Greater than 30
--- NOTE | 2019-02-21 09:50 | P.PN ---
Progress Note - Text Progress Note Date: 02/21/19 The patient is sitting in his chair. He has less pain today. His subcutaneous emphysema has resolved.. His chest tubes down to water seal. His x-rays morning shows no evidence of pneumothorax. On exam her vital signs appear stable. Right chest wall is tender. Abdomen soft. Status post multiple right rib fractures with pneumothorax and pulmonary contusion. Patient continue pulmonary toilet. He will be switched to oral pain meds today. Anticipate chest tube removal in the a.m.
--- NOTE | 2019-02-21 10:20 | P.PN ---
Subjective Progress Note Date: 02/21/19 Principal diagnosis: Chest wall trauma with multiple rib fractures, hydropneumothorax and subcutaneous emphysema. This is a 48-year-old white male patient who presented to the hospital after falling from a tree stand, patient fell approximately 20 feet. After his fall he was able to walk to the road, but then he realized he needed to go to the hospital related to severe pain in his right lateral chest. Patient has history of hypertension, migraine headaches, anxiety/depression, no ALLERGIES. Denied any loss of consciousness, he states a branch under him had broke causing him to fall 20 feet onto his right back. Denied any head or neck pain, no shortness of breath. In the ER CT of chest abdomen and pelvis showed the 40% right-sided hemopneumothorax with segmented right-sided rib fractures, with the possibility of flail chest. There was evidence of extensive subcutaneous emphysema. No evidence for thoracic aortic injury, etiology of abdomen and pelvis failed to demonstrate evidence of traumatic injury at this time. CT brain was negative, cervical spine CT showed no evidence of fracture or subluxation, showed extensive subcutaneous emphysema. Patient had the right-sided chest tube inserted by Dr. Hernandez in the emergency department, there has been 120 mL of 5 sanguinous output, there is an occasional air leak noted with deep inspiration. Lab work showed a white blood cell count of 12.6, hemoglobin of 12.8, platelet count of 263, in remission profile is within normal limits, electrolytes and renal profile are unremarkable, asthma lactic acid is 5.0, troponin is negative, serum alcohol is 60, and patient does admit to having one beer this morning. Is currently on 4 L of oxygen with a pulse ox of 95%, slightly tachycardic, and hypertensive, he is in moderate to severe amount of pain from the right-sided rib fractures, he has received IV Dilaudid, ketamine and fentanyl, anesthesia consultation is pending. Awaiting a bed in the ICU, and we're consulted for ICU management Patient was reevaluated today on 02/20/2019 remains in the ICU, continues to have right-sided chest tube in place. Right lung is fully expanded, continues to have significant subcutaneous emphysema. Patient is on 4 L nasal cannula and O2 saturations are 96%. Doing well with incentive spirometry. Intermittent air leak noted. Continues to drain serosanguineous material. He had 750 ML output since admission. 400 in the last 8 hours. Pain is on a scale of 6/10. Improving with Dilaudid. CBC is relatively normal hemoglobin is 11.3 electrodes are normal renal profile is normal Reevaluated today on 02/21/2019, patient remains in the ICU, continues to have a right-sided chest tube in place, lung is fully expanded, no air leak was noted today, hence the chest tube was placed on waterseal. Off suction. His subcutaneous emphysema seems to be less on the chest x-ray today, pain seems to be fairly well controlled, and he will be switched to oral pain medications as per anesthesia on the case. Overall the patient is doing great, he seems to be a bit hypertensive, and I recommended increasing the dose of amlodipine. I will also recommended Xanax he is not receiving any Ativan although the patient drinks on the average of 4-5 beers every day on a daily basis. Not showing any signs of alcohol withdrawal except for slight tachycardia and hypertension Objective - Vital Signs Vital signs: Vital Signs Temp 98.0 F 02/21/19 08:00 Pulse 92 02/21/19 09:00 Resp 19 02/21/19 09:00 BP 164/85 02/21/19 09:00 Pulse Ox 93 L 02/21/19 09:00 Intake & Output 02/20/19 02/21/19 02/21/19 18:59 06:59 18:59 Intake Total 1560 1560 310 Output Total 1070 610 255 Balance 490 950 55 Weight 92.9 kg Intake: IV 1560 130 50 0.9 NACL 1560 130 50 Intake, IV Titration 1430 260 Amount Sodium Chloride 0.9% 1, 1430 260 000 ml @ 50 mls/hr IV . Q20H [facility] Rx#:[id number] Output: Chest Tube Drainage 400 10 Right Lateral Chest 400 10 Urine 670 600 255 Other: Voiding Method Urinal Urinal # Voids 0 0 1 - Exam GENERAL EXAM: Alert, pleasant, 48-year-old white male, on 4 L nasal cannula, in no distress. HEENT: PERRLA, EOMI, no icterus, subcutaneous emphysema palpable in the anterior chest wall and at the base of his neck and in the supraclavicular area. CHEST: No chest wall deformity. Symmetrical expansion. Good breath sound bilaterally. Right-sided chest tube is noted. LUNGS: Good breath sounds, symmetrical chest expansion. No crackles or rhonchi or wheezes.. CVS: Regular rate and rhythm, normal S1 and S2, no gallops, no murmurs, no rubs ABDOMEN: Soft nontender no megaly no rebound no guarding. EXTREMITIES: No clubbing, no edema, no cyanosis, good pulses bilaterally. MUSCULOSKELETAL: Muscle strength and tone normal. SPINE: No scoliosis or deformity SKIN: No rashes CENTRAL NERVOUS SYSTEM: Alert and oriented -3. No focal deficits, PSYCHIATRIC: Normal mood, normal affect, and normal mental status examination. - Labs CBC & Chem 7: 02/21/19 04:24 02/21/19 04:21 Labs: Abnormal Lab Results - Last 24 Hours (Table) 02/21/19 02/21/19 Range/Units 04:21 04:24 RBC 3.08 L (4.30-5.90) m/uL Hgb 10.4 L (13.0-17.5) gm/dL Hct 31.0 L (39.0-53.0) % MCV 100.6 H (80.0-100.0) fL Lymphocytes # 0.7 L (1.0-4.8) k/uL Sodium 134 L (137-145) mmol/L Calcium 8.3 L (8.4-10.2) mg/dL Assessment and Plan Assessment: #1. Acute hypoxic respiratory failure related to hemopneumothorax, status post right sided tube thoracostomy. #2. Multiple right-sided rib fractures secondary to fall. #3. Extensive subcutaneous emphysema , not getting any worse compared to yesterday. #4. Severe pain related to the above #5. Blood loss anemia related to hemothorax #6. Nonspecific lactic acid elevation, definitely no sepsis and no septic shock, and his lactic acid is back to normal. Exact reason for lactic acid elevation is not clear. #7. Daily alcohol use #8. Current smoker #9. Hypertension #10. Anxiety/depression Recommendation: Continue present supportive care measures. Continue updrafts/do not. Patient has been a heavy smoker continue incentive spirometry. Continue pain control. Chest tube to waterseal today. Repeat chest x-ray in a.m., consider removal of the chest tube in the next 24 hours and discharge home. We'll continue to follow. Increased amlodipine to 5 mg twice a day. Continue alcohol withdrawal protocol. Time with Patient: Less than 30
[2019-02-21] MEDS: IPRATROPIUM-ALBUTEROL 3 ML NEB INHALATION SCH ×3 (10:49→20:21)
[2019-02-21] MEDS: LOSARTAN 25 MG TAB PO SCH (12:35)
[2019-02-21] MEDS: METHOCARBAMOL 750 MG TAB PO PRN ×2 (15:20→21:11)
[2019-02-22] MEDS: KETOROLAC 30 MG/ML 1 ML VIAL IVP SCH ×4 (00:43→17:03)
[2019-02-22 04:25] LABS: HGB 10.4 gm/dL (13.0-17.5); MCH 33.7 pg (25.0-35.0); MCHC 34.5 g/dL (31.0-37.0); MCV 97.9 fL (80.0-100.0); Mean Platelet Volume 6.7; Platelet Count 132 k/uL (150-450); RBC 3.07 m/uL (4.30-5.90); RDW 12.7 % (11.5-15.5); WBC 4.8 k/uL (3.8-10.6)
[2019-02-22 04:34] LABS: African American GFR (CKD) >90 (>60 ml/min/1.73 sqM); Anion Gap 7 mmol/L; Blood Urea Nitrogen 11 mg/dL (9-20); Carbon Dioxide 23 mmol/L (22-30); Chloride 104 mmol/L (98-107); Glucose 104 mg/dL (74-99); Potassium 4.1 mmol/L (3.5-5.1); Sodium 134 mmol/L (137-145)
[2019-02-22 04:35] LABS: Calcium 8.4 mg/dL (8.4-10.2)
[2019-02-22] MEDS: HYDROmorphone 1 MG/ML 1 ML SYRINGE IVP PRN ×3 (04:35→15:07)
[2019-02-22] MEDS: SODIUM CHLORIDE 0.9% 1,000 ML IV SCH (04:36)
[2019-02-22] MEDS: PANTOPRAZOLE 40 MG TABLET PO SCH (06:21)
[2019-02-22] MEDS: THIAMINE 100 MG TAB PO SCH ×2 (06:21→17:03)
[2019-02-22] MEDS: IPRATROPIUM-ALBUTEROL 3 ML NEB INHALATION SCH ×3 (07:02→15:05)
--- NOTE | 2019-02-22 07:31 | PN ---
PROGRESS NOTE PULMONARY/CRITICAL CARE PROGRESS NOTE: DATE OF SERVICE: February 22, 2019. This is a 48-year-old male who was admitted on February 19. He apparently sustained a pulmonary contusion, rib fractures and hemopneumothorax when he fell from a tree stand. The patient had acute hypoxemic respiratory failure and required a right-sided chest tube placement. He had multiple right-sided rib fractures, extensive subcutaneous emphysema, severe pain, blood loss secondary to hemothorax, lactic acid elevation, hypertension, and anxiety with depression. Currently, the patient is on room air. His IV is 0.9 at 50 mL an hour. He has a right- sided pleural chest tube in place. It is to water-seal. He does appear to have a small leak. Anyway, the patient continues with incentive spirometer, deep breathing, coughing, clearing of secretions. A chest x-ray was already done this morning, but not yet evaluated by me. The patient admits to primarily pain in the right chest area. PHYSICAL EXAMINATION: VITAL SIGNS: Current vital signs are reviewed. His temperature is 98.6. His heart rate is 93, respiratory rate 17, blood pressure 145/84, mean 104 and room air saturation anywhere from 92% to 95%. GENERAL: Appears in no acute distress. HEENT: Examination is grossly unremarkable. Mucous membranes are moist. No oral lesions. NECK: Supple. Full range of motion. No adenopathy. Neck veins are flat. CARDIOVASCULAR: Examination reveals regular rhythm and rate. Heart rate in mid 80s. S1, S2 normal. LUNGS: Reveal diminished breath sounds throughout. He has some coarse rhonchi bilaterally. ABDOMEN: Soft. EXTREMITIES: Are intact. No cyanosis, clubbing, or edema. SKIN: Without rash. NEUROLOGIC: Examination is brief but nonfocal. Microbiologic studies are negative. LABS: Labs are reviewed. White count 4.8, hemoglobin 10.4, hematocrit 30, platelet count 132,000. Sodium 134, potassium 4.1, chloride 104, CO2 is 23. Anion gap 7. BUN and creatinine were 11 and 0.74. Chest x-ray today still shows some subcutaneous emphysema particularly on the right side. I do not see an obvious pneumothorax. Chest tube in place. There is some volume loss in the right chest with some basilar atelectasis. MEDICATIONS: His medications are reviewed and appear to be appropriate. ASSESSMENT: 1. Acute hypoxemic respiratory failure secondary to multiple right-sided chest injuries including pulmonary contusion, multiple right rib fractures, hemopneumothorax requiring chest tube placement. 2. Multiple right-sided rib fractures secondary to fall. 3. Extensive subcutaneous emphysema on the right side particularly. 4. Severe inspiratory pain because of the above injuries. 5. Blood loss secondary to hemothorax. 6. Mild lactic acid elevation. 7. Daily alcohol use. 8. Current tobacco use. 9. Hypertension. 10.Anxiety/depression. PLAN: Currently, Thoracic Surgery is managing the chest tube. He still has a small leak and significant subcutaneous emphysema. Chest x-ray does not appear to show pneumothorax. We will continue with deep breathing, coughing, clearing of secretions and hourly use of incentive spirometer. His blood pressure medication was increased yesterday. We will continue with daily chest x-rays. Also would continue with pain medication. Additional recommendations and suggestions are forthcoming. Prognosis is guarded. MMODL / IJN: [id number] /
[2019-02-22] MEDS: DOCUSATE 100 MG CAP PO SCH (08:10)
[2019-02-22] MEDS: HEPARIN SODIUM,PORCINE 5,000 UNIT/ML 1 ML VIAL SQ SCH ×2 (08:10→15:07)
[2019-02-22] MEDS: amLODIPine 5 MG TAB PO SCH (08:11)
[2019-02-22] MEDS: ALPRAZolam 0.5 MG TAB PO SCH (08:11)
[2019-02-22] MEDS: LOSARTAN 25 MG TAB PO SCH (08:12)
--- NOTE | 2019-02-22 08:12 | XR ---
EXAMINATION TYPE: XR chest 1V DATE OF EXAM: 02/22/2019 COMPARISON: Prior chest x-ray 02/21/2019 HISTORY: Pneumothorax, chest tube TECHNIQUE: Single frontal view of the chest is obtained. FINDINGS: There is no significant interval change. Right-sided chest tube remains in place, no sizab le pneumothorax. Extensive subcutaneous emphysema is again noted. Heart size is stable. There is patc hy increased density at the right lung base. There are overlying cardiac leads. Left lung shows some subsegmental atelectatic changes at the left base. IMPRESSION: There may be basilar atelectasis, pneumonia, effusion greater on the right.
--- NOTE | 2019-02-22 09:29 | P.PN ---
Subjective Progress Note Date: 02/22/19 Principal diagnosis: Right hemopneumothorax with extensive subcutaneous emphysema, fractured ribs status post fall from a deer stand with significant right-sided chest pain. Previous medical history of hypertension, current tobacco dependence, GERD, daily EtOH use, migraine headaches and anxiety/depression POD #3 placement of right-sided chest tube by the emergency room physicians The patient is currently sitting up in the recliner in the intensive care unit in no acute distress. He does continue to complain of right-sided chest pain, especially with coughing. Denies shortness of breath. Actively using incentive spirometer and splinting chest with coughing. Was ambulatory in the hallway yesterday. Chest tube to water seal for 24 hours, no air leak seen this mor missy, positive tidaling in the water seal chamber. No new concerns. Objective - Vital Signs Vital signs: Vital Signs Temp 98.6 F 02/22/19 00:00 Pulse 93 02/22/19 06:00 Resp 17 02/22/19 06:00 BP 145/84 02/22/19 06:00 Pulse Ox 92 L 02/22/19 06:00 Intake & Output 02/21/19 02/22/19 02/22/19 18:59 06:59 18:59 Intake Total 760 1200 Output Total 970 1055 Balance -210 145 Weight 92.9 kg Intake: IV 500 600 0.9 NACL 500 600 Intake, IV Titration 260 Amount Sodium Chloride 0.9% 1, 260 000 ml @ 50 mls/hr IV . Q20H [facility] Rx#:[id number] Oral 600 Output: Chest Tube Drainage 15 5 Right Lateral Chest 15 5 Urine 955 1050 Other: Voiding Method Urinal Urinal # Voids 1 - Constitutional General appearance: Present: cooperative, no acute distress - Respiratory Details: Lung sounds diminished bilaterally. Respirations even, non-labored. Currently on 2 LPM NC with oxygen saturation 92%. Strong cough with blood-tinged sputum. Able to achieve 1500 mL on incentive spirometer. Right-sided chest tube present to water seal, 5 mL serosanguinous drainage overnight, 20 mL in the last 24 hours, no air leak present, positive tidaling in water seal chamber. - Cardiovascular Details: S1/S2 present. Tachy but regular rate, rhythm, sinus rhythm to sinus tach on telemetry. Palpable peripheral pulses bilaterally. No edema present. No calf pain or tenderness noted. SCDs present. - Gastrointestinal Gastrointestinal Comment(s): Abdomen soft, non-tender, non-distended. Active bowel sounds x 4 quadrants. Tolerating diet. - Genitourinary Genitourinary Comment(s): Continues to void clear, yellow urine. - Integumentary Integumentary Comment(s): Skin is warm and dry with evidence of good perfusion. - Neurologic Neurologic: Present: CNII-XII intact - Musculoskeletal Musculoskeletal: Present: gait normal, strength equal bilaterally - Psychiatric Psychiatric: Present: A&O x's 3, appropriate affect, intact judgment & insight - Allied health notes Allied health notes reviewed: nursing - Labs CBC & Chem 7: 02/22/19 04:04 02/22/19 04:08 Labs: Abnormal Lab Results - Last 24 Hours (Table) 02/22/19 02/22/19 Range/Units 04:04 04:08 RBC 3.07 L (4.30-5.90) m/uL Hgb 10.4 L (13.0-17.5) gm/dL Hct 30.0 L (39.0-53.0) % Plt Count 132 L (150-450) k/uL Sodium 134 L (137-145) mmol/L Glucose 104 H (74-99) mg/dL - Imaging and Cardiology Chest x-ray: image reviewed Assessment and Plan Assessment: 1. Right hemopneumothorax with extensive subcutaneous emphysema, status post right chest tube placement by the emergency room physicians 2. Fractured right-sided ribs, status post fall from deer stand 3. Severe right-sided chest pain 4. Hypertension 5. Current tobacco dependence 6. GERD 7. Daily ETOH use 8. Anxiety/depression Plan: 1. Will discontinue right-sided chest tube. Repeat CXR in 2 hours. If stable, may discharge to home from our standpoint when OK with other services. 2. Pain control per anesthesia management. Recommend weaning off IV Dilaudid to oral Percocet, continue Robaxin. 3. Continue to monitor her daily chest x-rays while hospitalized. 4. Wean oxygen as tolerated. Pulmonary management per pulmonology recommendations. 5. Encourage use of his incentive spirometry every hour while awake. 6. GI and DVT prophylaxis. 7. Increase activity as tolerated, ambulate as tolerated. Out of bed for all meals. 8. Encourage smoking cessation. 9. More recommendations to follow. Time with Patient: Greater than 30
[2019-02-22] MEDS ORDERED: HYDROcodone/APAP 5-325MG 1 EACH TAB PO PRN (10:46)
[2019-02-22 12:24] VITALS: TEMP 98.9
--- NOTE | 2019-02-22 12:52 | XR ---
EXAMINATION TYPE: XR chest 2V DATE OF EXAM: 02/22/2019 COMPARISON: Prior chest x-ray same dated earlier time HISTORY: Status post chest tube removal TECHNIQUE: Frontal and lateral views of the chest are obtained. FINDINGS: Right-sided chest tube is been removed. Multiple right-sided rib fractures noted. Minimal right apical pneumothorax. Extensive subcutaneous emphysema again noted. Basilar increased density pe rsists. IMPRESSION: Minimal right apical pneumothorax post chest tube removal
--- NOTE | 2019-02-22 13:37 | P.DS ---
Providers Date of admission: 02/19/19 13:12 Expected date of discharge: 02/22/19 Attending physician: Aidan Sánchez Consults: 02/19/19 13:11 Consult Physician Routine Consulting Provider: Nara Quintanilla Consult Reason/Comments: icu patient Do you want consulting provider notified?: Already Contacted 02/19/19 13:15 Consult to Anesthesia Routine Consulting Provider: Anesthesia,Services Consult Reason/Comments: rib fractures 02/19/19 13:31 Consult Physician Routine Consulting Provider: Shekhar Hart Consult Reason/Comments: right hemothorax, broken ribs, trauma Do you want consulting provider notified?: Yes 02/19/19 13:46 Consult Physician Routine Consulting Provider: Killian Senior Consult Reason/Comments: rib fractures/pain/epidural Do you want consulting provider notified?: Yes 02/19/19 13:47 Consult Physician Routine Consulting Provider: Shekhar Hart Consult Reason/Comments: hydrpneumothorax trauma Do you want consulting provider notified?: Yes Primary care physician: Physician Nonstaff Hospital Course: 48-year-old male who presented to the hospital after falling from a tree stand, approximately 20 feet. In the ER CT of the chest abdomen and pelvis showed 40% right-sided hemopneumothorax with segmented right-sided rib fractures. There is evidence of extensive subcutaneous emphysema. CT abdomen and pelvis was negative for traumatic injuries. CT of the brain and CT of the cervical spine was also negative. Patient had a chest tube inserted in the emergency room. He was admitted to the intensive care unit for further evaluation. Patient was followed by pulmonary, anesthesia, and cardiothoracic surgery during hospitalization. His chest tube was removed on 02/22/19 and he was cleared for discharge by consulting providers. Patient is stable for discharge home today. Please see EMR for further hospital course details. Discharge diagnosis 1. Acute hypoxic respiratory failure related to hemopneumothorax, status post right-sided chest tube insertion 2. Multiple right-sided rib fractures secondary to traumatic fall 3. Extensive subcutaneous emphysema 4. Acute blood loss anemia secondary to hemothorax 5. Daily alcohol use Nurse practitioner note has been reviewed by physician. Signing provider agrees with the documented findings, assessment, and plan of care. Patient Condition at Discharge: Stable Plan - Discharge Summary Discharge Rx Participant: Yes New Discharge Prescriptions: New Hydrocodone/Acetaminophen [[place] 5-325] 1 tab PO Q4HR PRN 3 Days #18 tab PRN Reason: Pain Ibuprofen [Motrin] 600 mg PO Q8HR PRN #30 tab PRN Reason: Pain No Action Nortriptyline HCl [Pamelor] 25 - 50 mg PO HS Irbesartan/Hydrochlorothiazide [Irbesartan-Hctz 300-12.5 mg Tb] 1 tab PO DAILY amLODIPine [Norvasc] 5 mg PO DAILY Butalb/APAP/Caff 50-325-40Mg [Fioricet 50-325-40] 1 - 2 tab PO Q6H PRN PRN Reason: Migraine Headache Clonazepam Odt 0.5mg 0.5 mg PO Q8H PRN PRN Reason: Anxiety Discharge Medication List Butalb/APAP/Caff 50-325-40Mg [Fioricet 50-325-40] 1 - 2 tab PO Q6H PRN 02/19/19 [History] Clonazepam Odt 0.5mg 0.5 mg PO Q8H PRN 02/19/19 [History] Irbesartan/Hydrochlorothiazide [Irbesartan-Hctz 300-12.5 mg Tb] 1 tab PO DAILY 02/19/19 [History] Nortriptyline HCl [Pamelor] 25 - 50 mg PO HS 02/19/19 [History] amLODIPine [Norvasc] 5 mg PO DAILY 02/19/19 [History] Hydrocodone/Acetaminophen [[place] 5-325] 1 tab PO Q4HR PRN 3 Days #18 tab 02/22/19 [Rx] Ibuprofen [Motrin] 600 mg PO Q8HR PRN #30 tab 02/22/19 [Rx] Follow up Appointment(s)/Referral(s): None,Stated [REFERRING] - 1-2 days Activity/Diet/Wound Care/Special Instructions: PCP is Dr Galileo Garcia DO, phone number for discharge appointment is [phone] DISCHARGE INSTRUCTIONS: 1. No driving for 2 weeks, or until physician gives their ok. 2. No lifting, pushing, or pulling more than 10 pounds for 2 weeks. The physician will advise of any restriction changes. 3. Continue pain control per as needed orders. 4. Continue with incentive spirometry and splinting until otherwise directed by the physician. 5. Leave chest tube dressing for 48 hours. After that, remove all dressings and shower daily. 6. Routine incision care. No powders, lotions, ointments on incisions. 7. Please call surgeon/POWERTRAIN DESIGN ENGINEER for temp greater than 101 F or purulent drainage from incisions. Kaylee POWERTR[employer] DESIGN ENGINEER ; [place]on [employer]TR[employer] DESIGN ENG[employer]ER
[2019-02-22 16:14] VITALS: BP 154/91; PULSE 91; RESP 14
== END 2019-02-22 18:15 | disposition home or self-care (01) | DRG 199 ==
LOC: EC 11:08 → 2SICU 13:12
PROVIDERS: ADMIT Surgery; ATTEND Surgery
PROC: 0W9930Z Drainage of Right Pleural Cavity with Drainage Device, Percutaneous Approach (ICD-10-PCS; principal; 2019-02-19)
DX: S27.2XXA Traumatic hemopneumothorax, initial encounter (principal); S22.5XXA Flail chest, initial encounter for closed fracture; J96.01 Acute respiratory failure with hypoxia; D62 Acute posthemorrhagic anemia; E87.2 Acidosis; J93.82 Other air leak; I10 Essential (primary) hypertension; T79.7XXA Traumatic subcutaneous emphysema, initial encounter; F32.9 Major depressive disorder, single episode, unspecified; F41.9 Anxiety disorder, unspecified; G43.909 Migraine, unspecified, not intractable, without status migrainosus; G89.11 Acute pain due to trauma; K21.9 Gastro-esophageal reflux disease without esophagitis; W14.XXXA Fall from tree, initial encounter; Y90.3 Blood alcohol level of 60-79 mg/100 ml; Z79.899 Other long term (current) drug therapy; Z82.49 Family history of ischemic heart disease and other diseases of the circulatory system; Z71.6 Tobacco abuse counseling; F17.210 Nicotine dependence, cigarettes, uncomplicated
CPT/HCPCS: 32551; 36415; 70450; 71045; 71046; 71260; 72125; 72170; 74177; 80048; 80053; 80320; 82150; 82550; 82553; 83605; 83690; 84484; 85025; 85027; 85610; 85730; 86850; 86900; 86901; 94640; 96360; 96374; 96375; 99291